=== PATIENT | female | born 1990 | race Caucasian/White ===

== ENCOUNTER 2020-03-28 04:15 | Inpatient (IN) | payer BC, SELFPAY ==
[2020-03-28] VITALS (129 sets, daily range): BP systolic 78–176; BP diastolic 40–97; PULSE 50–125; RESP 16–18; TEMP 35.7–37; O2SAT 85–99; BMI 34.7
[2020-03-28 04:12] LABS: ROM Internal Control Test YES-OK TO RESULT pt. (Internal QC)
[2020-03-28 04:13] LABS: ROM Patient Test POSITIVE (Negative)
[2020-03-28 04:16] LABS: Bedside Glucose 125 mg/dL (70-110)
[2020-03-28] MEDS: Lactated Ringers 1,000 ML 50 ML IV (05:00)
[2020-03-28] MEDS: Labetalol 100 MG Tablet PO (05:12)
[2020-03-28 05:19] LABS: Absolute Lymphocyte Count 2.95 X10^3/uL (0.83-4.51); Absolute Neutrophil Count 6.7 X10^3/uL (2.0-7.7); Basophil# 0.04 X10^3/uL; Basophil% 0.4 % (0-1); Eosinophil# 0.16 X10^3/uL; Eosinophils% 1.5 % (0-5); Hematocrit 41.2 % (37-47); Hemoglobin 13.2 g/dL (12.0-15.0); Lymphocyte # 2.95 X10^3/ul (4.0); Lymphocyte % 26.9 % (19-41); Mean Corpuscular Hgb 27.2 pg (27.0-32.0); Mean Corpuscular Volume 84.8 fL (81-99); Monocyte# 1.06 X10^3/uL; Monocyte% 9.7 % (0-10); NRBC Flagged by Analyzer 0 % (0-5); Neutrophil # 6.71 X10^3/uL (2.7-7.7); Platelet Count 419 K/mm3 (150-450); RBC Distribution Width CV 13.3 % (11.6-14.6); RBC Distribution Width SD 41.1 fl (35.1-43.9); Red Blood Count 4.86 M/mm3 (4.2-5.4)
[2020-03-28 05:27] LABS: Prothrombin Time (Protime)PT. 12.3 SECONDS (11.7-14.9)
[2020-03-28] MEDS: miSOPROStol 25 MCG TABLET VAGINAL (05:33)
[2020-03-28 05:51] LABS: Bedside Glucose 72 mg/dL (70-110)
[2020-03-28 05:57] LABS: AST(SGOT) 13 U/L (15-37); Alanine Aminotransfer ALT/SGPT 13 U/L (13-56); Creatinine, Serum 0.72 mg/dL (0.55-1.02); EST Glomerular Filtration Rate 101 mL/min (>60); Est Glom Filt Rate - Afr Amer 122 mL/min (>60); Estimated Creatinine Clearance 89.54 ml/min; Uric Acid 6.6 mg/dL (2.6-6.0)
[2020-03-28] MEDS: 0.9% Saline Lock 10 ML Syringe IV (06:47)
[2020-03-28 06:51] LABS: Bedside Glucose 88 mg/dL (70-110)
[2020-03-28 07:15] LABS: Group B Strep DNA By PCR Negative (Negative); Internal Control PASS; Probe Check PASS; Specimen Processing Control PASS
[2020-03-28] MEDS: hydrALAZINE 20 MG/ML Vial 10 MG IV (08:30)
[2020-03-28] MEDS: hydrALAZINE 10 MG Tablet 20 MG PO ×3 (09:27→21:49)
[2020-03-28] MEDS: miSOPROStol 50 MCG TABLET VAGINAL (09:50)
[2020-03-28] MEDS: Acetaminophen 500 MG Tablet 1000 MG PO ×2 (10:25→17:00)
[2020-03-28] MEDS: Magnesium Sulfate 4gm/100mL 4 GM/100 ML IV.SOLN. IV (10:39)
[2020-03-28 10:40] LABS: Bedside Glucose 76 mg/dL (70-110)
[2020-03-28] MEDS: Magnesium Sulfate 20 GM/500 ML BAG IV ×2 (11:07→21:00)
[2020-03-28 14:50] LABS: Bedside Glucose 95 mg/dL (70-110)
[2020-03-28] MEDS: Ondansetron 4 MG/2 ML Vial IV ×2 (15:24→22:48)
--- NOTE | 2020-03-28 16:41 | PCM.HP.OB ---
History Date of Admission: 03/28/20 Final MAHAMED: 04/25/20 Gestational age: 36 Weeks and 0 Days History of this : This is a 30 year-old, @ 36 weeks presents w/ c/o of spont. rupture of membranes. Good Fm. No VB/LOF. Mild HATCH upon admission has waxed and waned since admission. Now she has severe frontal HATCH. Denies visual changes or epigastric pain. complicated to date by gestational diabetes, maternal obesity w/ BMI of 34. Allergies cefaclor [From [facility]] Allergy (Verified 03/28/20 03:51) Hives Home Medications: Home Medications Claritin 1 tab PO DAILY 03/28/20 Omeprazole 40 mg PO DAILY 03/28/20 Vit No.130/Iron/Folic [ Tablet] 1 tab PO DAILY 03/28/20 Smoking Status: Never smoker Alcohol: None Number of Fetus(es): 1 NST - FHR Rate Baby A Baseline: normal Variability:: Moderate Accelerations:: 15 x 15 Decelerations:: None NST Reactive:: Yes FHR Category:: Category I Uterine Activity:: irritability History Past Pregnancies: Past Pregnancies Delivery Date Name GA/ Weeks Outcome Route Wt Infant Sex Labor Length Anesthesia Delivery Location Provider FOB Expected Infant Delivery Method: Spontaneous Vaginal Review of Systems Constitutional: Denies: Chills, Fever Eyes: Denies: Blurred vision Cardiovascular: Denies: Chest Pain Respiratory: Denies: Cough Gastrointestinal: Denies: Diarrhea Skin: Denies: Rash Neurological: Denies: Blurred vision, Double vision Hematologic/ Lymphatic: Denies: Anemia Physical Exam Vitals: Vital Signs Temp Pulse Resp BP Pulse Ox 98.0 F 97 16 141/85 H 98 03/28/20 14:52 03/28/20 16:25 03/28/20 13:19 03/28/20 15:56 03/28/20 16:25 General: Alert, Cooperative, No apparent distress Cardiovascular: Regular rate Lungs: Normal air movement Abdomen: Soft, Non Tender, Non-Distended Extremities:: Normal pulses, Deep tendon reflexes - 2+ Neurological: Cranial nerves II-XII grossly intact. Negative for: Clonus BASKET PERSON: Normal external genitalia Estimated gestational size: Appropriate for gestational size Presentation: Cephalic Cervix Dilation (cm): 2 Station: -2 Effacement (%): 70 Assessment/Plan This is a 30 year-old, 1 para 0 at 36 weeks gestation with premature rupture membranes, diet-controlled gestational diabetes, and preeclampsia with severe features. Induction of labor with Pitocin after Cytotec and Hurt ripening. Have epidural as desires. Magnesium prophylaxis started. Group B strep is negative. Continue to monitor closely. Patient is started on oral hypertensive medication as well. Blood sugars have been well controlled. 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 Procedure note: Hurt placed over stylette in usual sterile fashion and inflated to 30 cc. Placement over internal cervical loss confirmed. Patient tolerated the procedure well. Procedure Criteria COVID Risk Discussion: non-elective, essential procedure
[2020-03-28] MEDS: 0.9% Normal Saline Single 100 ML IV.SOLN. IY (17:00)
[2020-03-28] MEDS: proMETHazine 25 MG/ML Syringe 12.5 MG IV (17:17)
[2020-03-28] MEDS: Oxytocin 30 units/NS 500 ml 30 UNITS/500 ML IV.SOLN IV (18:54)
[2020-03-28 19:11] LABS: Bedside Glucose 94 mg/dL (70-110)
[2020-03-28] MEDS: Lactated Ringers 500 ML 999 ML IV ×2 (20:05→22:43)
[2020-03-28] MEDS: fentaNYL-bupivacaine (epidural) 100 ML BAG EPIDURAL (21:17)
--- NOTE | 2020-03-28 21:52 | NURSING ---
unable to enter assessment for 2026 on the Magnesium flow sheet due to bag change @ 2100 during epidural placement. BP 139/74, pulse 85, respirations 18, pulse ox 97; Intake PO 100 ml, 0 ml for output.
[2020-03-28 23:45] LABS: Bedside Glucose 118 mg/dL (70-110)
[2020-03-29] VITALS (70 sets, daily range): BP systolic 103–146; BP diastolic 51–88; PULSE 84–108; RESP 16–18; TEMP 35.7–37.2; O2SAT 93–99
[2020-03-29] MEDS: fentaNYL-bupivacaine (epidural) 100 ML BAG EPIDURAL (01:44)
[2020-03-29] MEDS: 0.9% Saline Lock 10 ML Syringe IV (02:41)
[2020-03-29] MEDS: Ondansetron 4 MG/2 ML Vial IV (02:41)
[2020-03-29] MEDS: Oxytocin 30 units/NS 500 ml 30 UNITS/500 ML IV.SOLN 334 UNITS IV (03:20)
--- NOTE | 2020-03-29 03:20 | PLAC_PTH ---
PATIENT: LEONARD RUBI LOC: [facility] U#:[id number] AGE/SX: 30/F ROOM: WP015 RE03/28/[address]: Dr. Sydnee Pedroza MD : 1990 BED: 1 DIS: 03/31/2020 SPEC #: [id number] RECD: 03/29/20 08:47 STATUS: LEIA REQ #: [id number] ANJANA: 03/29/20 03:[address]: Sydnee Pedroza DEPT: SURGICAL PATHOLOGY RECD BY: Jose Maurer ENTERED: 03/30/20 08:22 SP TYPE: PLACENTA OTHR DR: Dr. Buddy Rubio MD Tissues: Placenta, NOS Procedures: Surgery Specimen Level V HEADER OPERATION: Vaginal delivery PRE-OP DIAGNOSIS: PPROM TISSUE SUBMITTED: Placenta MICROSCOPIC DIAGNOSIS Placenta: Placental disc - third trimester placenta (413 gm). - Focal area of infarction and adjacent intervillous and perivillous fibrin deposition (1.2 cm in greatest dimension). - Focal increased intervillous and perivillous fibrin deposition and chronic villitis of unknown etiology. Submembranous hematoma (10 cm in greatest dimension). Membranes - focal mild acute chorioamnionitis. Umbilical cord - three blood vessels and no pathologic diagnosis. SJ:julian 04/01/20 MICROSCOPIC DESCRIPTION Slides are reviewed. GROSS DESCRIPTION SPECIMEN: PLACENTA / CLINICAL INFORMATION: A. Weight: 2.229 kg B. Gestational Age: 36 weeks C. Sex: Female PLACENTAL WEIGHT (POST FIXATION): 413 gm PLACENTAL DIMENSIONS: 18 x 15 x 3 cm PLACENTAL SHAPE: Usual ovoid PLACENTAL WEIGHT FOR GESTATIONAL AGE: Within 10-99th percentile MEMBRANES - Present A. Insertion: Marginal B. Site of rupture from edge: At edge of placental disc C. Color of membrane: Kebede-fernando D. Abnormalities: Submembranous hematoma measuring 10 x 7 x 2 cm UMBILICAL CORD - Present A. Color: Kebede-fernando B. Insertion: Near central insertion and received in two fragments C. Length: 30 cm D. Diameter: 1 cm E. Number of vessels: Three F. Abnormalities: None PLACENTAL DISC - Present A. Color of surface: Kebede-fernando B. surface abnormalities: None C. Maternal cotyledons: Intact with minimal tears D. Attached retro placental clot: No clot E. Cut surface: Dark red and spongy F. Lesions: Kebede-white lesion measuring 1.2 cm G. Separate clot: Absent SECTIONS SUBMITTED: 1. Umbilical cord ( end notched) 2. Umbilical cord, placental end 3. Membrane roll 4. Placental disc, and maternal surfaces, lesion 5. Placental disc, and maternal surfaces 6. Placental disc, and maternal surfaces AM:julian 03/31/20 TC:2 CPT: 48344
--- NOTE | 2020-03-29 03:40 | PCM.OPRPT ---
Vaginal Delivery Maternal Presentation: Medically Indicated Induction Method of Induction: Pitocin, Hurt Bulb, Cytotec Medical Reason for Induction: Premature Rupture of Membranes, Preeclampsia, eclampsia Amniotic Membrane Rupture Type: Spontaneous at home Amniotic Fluid Description: Clear Final MAHAMED: 04/25/20 Final MAHAMED Source: US <20 weeks Gestational age: 36 Weeks and 1 Days Date of Procedure: 03/29/20 Pre-Operative Diagnosis: labor Post-Operative Diagnosis: same Surgery/ Procedure Performed: Spontaneous Vaginal Delivery Type of Anesthesia: Epidural Description of Procedure: A vigorous female infant was delivered KATYA over a second-degree perineal laceration. The remainder the was delivered with maternal pushing and gentle traction only in less than 15 seconds. The Pitocin infusion was initiated for active management of the third stage. The cord was clamped and cut after 1 minute. The was attended to by the waiting nursing staff. The placenta was delivered spontaneously and intact. The cervix and vagina were intact. The second-degree perineal laceration was repaired with 3-0 Vicryl suture in a running standard fashion. Sponge and needle counts were correct. A vaginal sweep was completed by me. Presentation: KATYA Placental Delivery Description: Spontaneous Placenta Disposition: Sent to Pathology Cord Vessel Description: 3 Vessels Cord Gases drawn per routine: ABG, VBG Cord Entanglement: None Drain: Hurt to straight drain Estimated Blood Loss: 300 A gender: Female - Cristal (1 minute): 8 (5 minute): 9 Episiotomy Description: None Laceration: 2nd degree Medications given after delivery: IV Pitocin Complications: None
[2020-03-29 03:55] LABS: Bedside Glucose 113 mg/dL (70-110)
[2020-03-29 06:06] LABS: Bedside Glucose 128 mg/dL (70-110)
[2020-03-29] MEDS: Magnesium Sulfate 20 GM/500 ML BAG IV ×2 (06:51→15:31)
[2020-03-29] MEDS: Naproxen 250 MG Tablet 500 MG PO ×2 (10:00→17:24)
[2020-03-29] MEDS: Acetaminophen 500 MG Tablet 1000 MG PO (13:28)
[2020-03-29] MEDS: Lactated Ringers 500 ML 15 ML IV (14:15)
[2020-03-29 14:20] LABS: Pathology Specimen OB SEE PATHOLOGY REPORT
[2020-03-29] MEDS: Senna/Docusate Sodium 1 Tablet PO (21:34)
[2020-03-30] VITALS (18 sets, daily range): BP systolic 118–153; BP diastolic 64–95; PULSE 53–93; RESP 16–18; TEMP 36.4–36.8; O2SAT 93–97
[2020-03-30] MEDS: Magnesium Sulfate 20 GM/500 ML BAG IV (01:27)
[2020-03-30] MEDS: Naproxen 250 MG Tablet 500 MG PO ×3 (02:48→19:03)
[2020-03-30 06:46] LABS: Bedside Glucose 82 mg/dL (70-110)
[2020-03-30] MEDS: Dibucaine 30 GM Tube 1 APPLIC TOPICAL (08:19)
[2020-03-30] MEDS: Senna/Docusate Sodium 1 Tablet PO (08:19)
--- NOTE | 2020-03-30 08:39 | PN.OBGYN_ITS ---
Subjective: Doing well per patient and nursing staff. Ambulating and taking PO without difficulty. Voiding and passing flatus. Denies any headaches, visual changes, chest pain, shortness of breath, leg pain or increased vaginal bleeding. . - Physical Exam Vitals/I&O's: Vital Signs Temp Pulse Resp BP Pulse Ox 98.2 F 81 18 125/67 H 96 03/30/20 08:09 03/30/20 08:11 03/30/20 03:33 03/30/20 08:11 03/30/20 03:33 Oxygen Delivery Method Room Air Weight: 190 lb Body Mass Index (BMI) 34.7 Intake and Output for Last 24 Hours 03/28/20 03/29/20 03/30/20 23:59 23:59 23:59 Intake Total 2330.34 / 2330.34 3391.99 / 3391.99 619.39 / 619.39 Output Total 1290 / 1290 2690 / 2690 500 / 500 Balance 1040.34 / 1040.34 701.99 / 701.99 119.39 / 119.39 General: Alert, Oriented x3, Cooperative HEENT: Atraumatic, Normocephalic Neck: Trachea Midline Lungs: Clear to auscultation, Normal air movement, No rhonchi, No wheeze Cardiovascular: Regular rate, Regular Rhythm, No murmurs Abdomen: Bowel Sounds Present - Fundus firm 2 below U Extremities: Edema - +1 BLE, pitting Neurological: Deep Tendon Reflexes 2+/4 and Symmetrical Psych/Mental Status: Normal Affect, Appropriate Laboratory Results 03/30/20 06:32: POC Glucose 82 Current Medications Acetaminophen (Tylenol) 1,000 mg PO Q8H PRN PRN PRN Reason: Pain Score 1-3/10 Last Admin: 03/29/20 13:28 Dose: 1,000 mg Documented by: Bisacodyl (Dulcolax) 10 mg RECTAL UD PRN PRN Reason: If no BM Dibucaine (Dibucaine) 1 applic TOPICAL TID PRN PRN; Protocol PRN Reason: Discomfort Last Admin: 03/30/20 08:19 Dose: 1 oint Documented by: Hydrocortisone (Hytone) 1 applic TOPICAL TID PRN PRN; Protocol PRN Reason: Discomfort Loratadine (Claritin) 10 mg PO DAILY [facility] Last Admin: 03/29/20 13:24 Dose: Not Given Documented by: Methylergonovine Maleate (Methergine) 0.2 mg IM X1 PRN PRN Reason: Excess bleeding/uterine atony Naproxen (Naprosyn) 500 mg PO Q8H PRN PRN PRN Reason: Pain Score 1-3/10 Last Admin: 03/30/20 02:48 Dose: 500 mg Documented by: Omeprazole (Omeprazole) 40 mg PO DAILY [facility] Last Admin: 03/29/20 10:20 Dose: Not Given Documented by: Ondansetron HCl (Zofran) 4 mg IV Q4H PRN PRN PRN Reason: Nausea Oxycodone HCl (Oxyir) 5 - 10 mg PO Q4H PRN PRN PRN Reason: Pain Score 4-10/10 Prochlorperazine Edisylate (Compazine Iv) 10 mg IV Q6H PRN PRN PRN Reason: NAUSEA/VOMITING Senna/Docusate Sodium (Senokot-S, Concepción-Colace) 1 - 2 tablet PO DAILY PRN PRN PRN Reason: Constipation Last Admin: 03/30/20 08:19 Dose: 2 tablet Documented by: Simethicone (Mylicon) 80 mg PO PCHS PRN PRN Reason: Indigestion/Stomach pain Sodium Chloride () 5 - 15 ml IV UD PRN PRN Reason: SALINE FLUSH Medical Necessity - Tobacco Use Smoking Status: Never smoker Assessment/Plan A:PPD #1 Preeclampsia with Severe features P: 1) Doing well per nursing staff. 2) instructions with support. 3) Magnesium stopped at 0300, asymptomatic 4) No PO antihypertensives at this time, BP stable. 5) Planning D/C home tomorrow
--- NOTE | 2020-03-30 09:43 | NURSING ---
this AM BP taken and 144/74 obtained; pt requested retake because she said she didn't know BP cuff was pumping up and she was distractedly moving her arm around. Retake was 125/67
[2020-03-30] MEDS: Labetalol 100 MG Tablet PO (17:20)
[2020-03-31] VITALS (8 sets, daily range): BP systolic 139–155; BP diastolic 72–99; PULSE 72–81; RESP 16; TEMP 36.4–36.9
[2020-03-31] MEDS: Naproxen 250 MG Tablet 500 MG PO (03:26)
[2020-03-31] MEDS: 0.9% Saline Lock 10 ML Syringe IV (03:26)
[2020-03-31] MEDS: Labetalol 100 MG Tablet PO (05:29)
--- NOTE | 2020-03-31 08:16 | PCM.PN.OB ---
Subjective: Seen at bedside, doing well. Patient reports good pain control. Mild lochia. Voiding without difficulty. She denies any headaches or visual changes. Swelling is decreasing per patient. Breast-feeding going well. - Physical Exam Vitals/I&O's: Vital Signs Temp Pulse Resp BP Pulse Ox 98.4 F 81 16 145/72 H 96 03/31/20 07:54 03/31/20 07:53 03/31/20 01:12 03/31/20 07:53 03/30/20 03:33 Oxygen Delivery Method Room Air Weight: 86.183 kg Body Mass Index (BMI) 34.7 Intake and Output for Last 24 Hours 03/29/20 03/30/20 03/31/20 23:59 23:59 23:59 Intake Total 3391.99 / 3391.99 619.39 / 619.39 Output Total 2690 / 2690 500 / 500 Balance 701.99 / 701.99 119.39 / 119.39 General: Alert, Oriented x3 Abdomen: Soft, Non Tender, Non-Distended, - - fundus firm Extremities: No Calf Tenderness Microbiology Past 72 Hours 03/28/20 Unknown Genital vaginal Group B Streptococcus Culture - Final Group B Beta Streptococcus is not isolated. Current Medications Acetaminophen (Tylenol) 1,000 mg PO Q8H PRN PRN PRN Reason: Pain Score 1-3/10 Last Admin: 03/29/20 13:28 Dose: 1,000 mg Documented by: Bisacodyl (Dulcolax) 10 mg RECTAL UD PRN PRN Reason: If no BM Dibucaine (Dibucaine) 1 applic TOPICAL TID PRN PRN; Protocol PRN Reason: Discomfort Last Admin: 03/30/20 08:19 Dose: 1 oint Documented by: Hydrocortisone (Hytone) 1 applic TOPICAL TID PRN PRN; Protocol PRN Reason: Discomfort Labetalol HCl (Trandate) 100 mg PO BID@0530,1730 [facility] Last Admin: 03/31/20 05:29 Dose: 100 mg Documented by: Loratadine (Claritin) 10 mg PO DAILY [facility] Last Admin: 03/30/20 10:34 Dose: Not Given Documented by: Methylergonovine Maleate (Methergine) 0.2 mg IM X1 PRN PRN Reason: Excess bleeding/uterine atony Naproxen (Naprosyn) 500 mg PO Q8H PRN PRN PRN Reason: Pain Score 1-3/10 Last Admin: 03/31/20 03:26 Dose: 500 mg Documented by: Omeprazole (Omeprazole) 40 mg PO DAILY [facility] Last Admin: 03/30/20 10:34 Dose: Not Given Documented by: Ondansetron HCl (Zofran) 4 mg IV Q4H PRN PRN PRN Reason: Nausea Oxycodone HCl (Oxyir) 5 - 10 mg PO Q4H PRN PRN PRN Reason: Pain Score 4-10/10 Prochlorperazine Edisylate (Compazine Iv) 10 mg IV Q6H PRN PRN PRN Reason: NAUSEA/VOMITING Senna/Docusate Sodium (Senokot-S, Concepción-Colace) 1 - 2 tablet PO DAILY PRN PRN PRN Reason: Constipation Last Admin: 03/30/20 08:19 Dose: 2 tablet Documented by: Simethicone (Mylicon) 80 mg PO PCHS PRN PRN Reason: Indigestion/Stomach pain Sodium Chloride () 5 - 15 ml IV UD PRN PRN Reason: SALINE FLUSH Last Admin: 03/31/20 03:26 Dose: 5 ml Documented by: Medical Necessity - Tobacco Use Smoking Status: Never smoker Assessment/Plan PPD#2- severe pre E 1) labetalol 100 BID 2) f/u in office 04/02 9am for BP check 3) Dc Home today- instructions reviewed
--- NOTE | 2020-03-31 08:26 | DCINST_ITS ---
Discharge Diet: No Restrictions Discharge Activity: Return to Normal Activity, May not drive while taking narcotic pain medications., May Shower May resume sexual activity in: 4-6 weeks Additional Activity Instructions:: Nothing in the vagina for 4-6 weeks. You may return to work/school in 6 weeks. Call your doctor if your incision/area has: Continuous Slow Oozing, Sudden Increased Bleeding, Increased Pain/ Swelling, Increased Redness, Foul Smelling Discharge Additional Instructions: If you experience any of the following, contact your healthcare provider. * Bleeding that soaks a pad every hour for 2 hours * Fever 100.4 or higher * Unrelieved incision or abdominal pain * Swelling, redness, discharge or bleeding from your incision or episiotomy site * Your incision begins to separate * Problems urinating (including inability to urinate or burning while urinating). * Visual changes * Severe headache * Flu-like symptoms * Pain or redness in one of both of your breasts * Pain, warmth, tenderness or swelling in your legs, especially the calf area * Frequent nausea and vomiting * Symptoms of depression or anxiety If you experience any of the following, call 911 or go to the nearest Emergency Room. * Chest pain * Problems breathing * Seizure activity * Partial or complete paralysis of a body part, slurred speech, weakness or drooping of the face, or a sudden inability to walk or hold your balance Allergies/Adverse Reactions: Allergies cefaclor [From Ceclor] Allergy (Verified 03/28/20 03:51) Hives Medications to take at Discharge Claritin 1 tab PO DAILY 03/28/20 Omeprazole 40 mg PO DAILY 03/28/20 Vit No.130/Iron/Folic [ Tablet] 1 tab PO DAILY 03/28/20 Acetaminophen [Tylenol] 1,000 mg PO Q8H PRN PRN #60 tab 03/31/20 Labetalol [Trandate (Beta Mindi)] 100 mg PO BID@0530,1730 #60 tab 03/31/20 Loratadine [Claritin] 10 mg PO DAILY tab 03/31/20 Naproxen [Naprosyn] 500 mg PO Q8H PRN PRN #60 tab 03/31/20 Senna/Docusate Sodium [Senokot-S] 1 - 2 tab PO DAILY PRN PRN #20 tab 03/31/20 The following prescriptions were given: Naproxen [Naprosyn] 500 mg PO Q8H PRN PRN #60 tab PRN Reason: Pain Score 1-310 Transmission Status: Pending to [id number] Senna/Docusate Sodium [Senokot-S] 1 - 2 tab PO DAILY PRN PRN #20 tab PRN Reason: Constipation Transmission Status: Pending to [id number] Labetalol [Trandate (Beta Mindi)] 100 mg PO BID@0530,2270 #60 tab Transmission Status: Pending to [id number] Acetaminophen [Tylenol] 1,000 mg PO Q8H PRN PRN #60 tab PRN Reason: Pain Score 1-10 Transmission Status: Pending to [id number] When: 04/02/20 at 9am [facility] for BP check. You will then need an appointment at 2 weeks and 6 weeks Post Please Follow Up With: Sydnee Pedroza MD Primary Care Physician: Buddy Rubio MD [Primary Care Provider] - Test Results: Test results from this visit will be discussed in further detail at your follow- up appointment, if applicable.
== END 2020-03-31 11:00 | disposition home or self-care (01) | DRG 807 ==
LOC: WPOUT 04:15 → WP 04:15
PROVIDERS: Admitting Provider Obstetrics & Gynecology; PCP Family Medicine; Visit Provider Obstetrics & Gynecology
DX: O60.14X0 Preterm labor third trimester with preterm delivery third trimester, not applicable or unspecified (principal); O42.913 Preterm premature rupture of membranes, unspecified as to length of time between rupture and onset of labor, third trimester; O14.14 Severe pre-eclampsia complicating childbirth; O24.420 Gestational diabetes mellitus in childbirth, diet controlled; O70.1 Second degree perineal laceration during delivery; O99.214 Obesity complicating childbirth; E66.9 Obesity, unspecified; Z3A.36 36 weeks gestation of pregnancy; Z37.0 Single live birth
CPT/HCPCS: 59025; 59050; 82565; 82962; 84112; 84450; 84460; 84550; 85025; 85610; 85730; 86850; 86900; 86901; 87081; 87653; 88307; 99218; J7120; A4216; G0378; J2405

== ENCOUNTER → 2021-03-18 | Outpatient (CLI) | payer BC, SELFPAY ==
[2021-03-18 10:29] VITALS: BMI 34.7
[2021-03-23 11:57] LABS: HPV Reflexed? NOT INDICATED
== END | disposition home or self-care (01) ==
PROVIDERS: PCP Family Medicine; Referring Provider Obstetrics & Gynecology; Visit Provider Obstetrics & Gynecology
DX: Z12.4 Encounter for screening for malignant neoplasm of cervix (principal)
CPT/HCPCS: 88175; G0145

== ENCOUNTER → 2021-08-09 | Outpatient (CLI) | payer BC, SELFPAY | END | disposition home or self-care (01) | LOC: LABSPEC 08-12 08:35 | PROVIDERS: PCP Family Medicine; Visit Provider Family Medicine | DX: Z20.822 Contact with and (suspected) exposure to COVID-19 (principal) | CPT/HCPCS: 87635; U0005; U0003 ==

== ENCOUNTER → 2021-09-06 | Outpatient (CLI) | payer BC, SELFPAY | END | disposition home or self-care (01) | LOC: LABSPEC 13:56 | PROVIDERS: PCP Family Medicine; Referring Provider Family Medicine; Visit Provider Family Medicine | DX: Z20.822 Contact with and (suspected) exposure to COVID-19 (principal) | CPT/HCPCS: 87633; 87635; U0005; U0003 ==

== ENCOUNTER → 2021-09-21 | Outpatient (CLI) | payer BC, SELFPAY | END | disposition home or self-care (01) | LOC: LABSPEC 15:18 | PROVIDERS: PCP Family Medicine; Referring Provider Family Medicine; Visit Provider Family Medicine | DX: U07.1 COVID-19 (principal) | CPT/HCPCS: 87635; U0005; U0003 ==

== ENCOUNTER 2021-09-24 09:05 | Outpatient (CLI) | payer BC, SELFPAY ==
[2021-09-24 09:08] VITALS: BP 153/85; PULSE 102; RESP 16; TEMP 36.8; O2SAT 98; BMI 35.1
[2021-09-24] MEDS: 0.9% Saline Lock 10 ML Syringe IV (09:09)
[2021-09-24 09:47] VITALS: BP 123/85; PULSE 84; RESP 16; TEMP 37.1; O2SAT 97
[2021-09-24 10:42] VITALS: BP 137/77; PULSE 83; RESP 16; TEMP 36.6; O2SAT 99
== END 2021-09-24 10:52 | disposition home or self-care (01) ==
LOC: MS3OUT 09:05 → MS3 09:07
PROVIDERS: PCP Family Medicine; Referring Provider Nurse Practitioner Acute Care; Visit Provider Nurse Practitioner Acute Care
DX: Z23 Encounter for immunization (principal); U07.1 COVID-19
CPT/HCPCS: J7050; M0245; Q0245; A4216

== ENCOUNTER 2021-10-18 12:03 | Outpatient (CLI) | payer BC, SELFPAY ==
[2021-10-18 15:18] LABS: Absolute Lymphocyte Count 2.96 X10^3/uL (0.83-4.51); Absolute Neutrophil Count 11.3 X10^3/uL (2.0-7.7); Basophil# 0.05 X10^3/uL; Basophil% 0.3 % (0-1); Eosinophil# 0.51 X10^3/uL; Eosinophils% 3.2 % (0-5); Hematocrit 42.3 % (37-47); Hemoglobin 13.5 g/dL (12.0-15.0); Lymphocyte # 2.96 X10^3/ul (0.83-4.51); Lymphocyte % 18.8 % (19-41); Mean Corp Hgb Conc 31.9 g/dL (32-36); Mean Corpuscular Hgb 27.2 pg (27.0-32.0); Mean Corpuscular Volume 85.1 fL (81-99); Mean Platelet Vol. 8.7 fl (6.2-12.0); Monocyte# 0.82 X10^3/uL; Monocyte% 5.2 % (0-10); NRBC Flagged by Analyzer 0 % (0-5); Platelet Count 496 K/mm3 (150-450); RBC Distribution Width CV 13.9 % (11.6-14.6); RBC Distribution Width SD 42.5 fl (35.1-43.9); Red Blood Count 4.97 M/mm3 (4.2-5.4); White Blood Count 15.7 K/mm3 (4.4-11.0)
[2021-10-18 15:27] LABS: Anion Gap 8 (5-15); BUN 9 mg/dL (7-18); BUN/Creat Ratio 14.3 RATIO (10-20); Calcium,Total 9.5 mg/dL (8.5-10.1); Chloride 102 mmol/L (98-107); Creatinine, Serum 0.63 mg/dL (0.55-1.02); EST Glomerular Filtration Rate 116 mL/min (>60); Est Glom Filt Rate - Afr Amer 141 mL/min (>60); Glucose 88 mg/dL (74-106); Potassium 3.4 mmol/L (3.5-5.1); Sodium Level 138 mmol/L (136-145)
[2021-10-18 15:47] LABS: D-Dimer Quantitative (DVT/PE) <= 0.27 FEU/ug/m (0.27-0.49)
== END 2021-10-18 23:59 | disposition short-term general hospital (02) ==
LOC: MTLAB 12:05
PROVIDERS: PCP Family Medicine; Referring Provider Family Medicine; Visit Provider Family Medicine
DX: R07.89 Other chest pain (principal)
CPT/HCPCS: 36415; 80048; 85025; 85379

== ENCOUNTER 2021-11-25 08:19 | Outpatient (CLI) | payer BC, SELFPAY ==
--- NOTE | 2021-11-25 09:05 | RAD_ITS ---
EXAM: XR Chest, 2 Views CLINICAL INDICATION: 31 years old, Female; COUGH TECHNIQUE: Frontal and lateral views of the chest. This report was created using [employer] report generation technology. COMPARISON: XR Chest dated 01/16/2017 FINDINGS: Lungs and pleural spaces: Atelectasis in the lung bases. No pneumothorax. No effusion. Heart: Unremarkable. Cardiac silhouette not enlarged. Mediastinum: Central airways and mediastinal contour are unremarkable. Bones/joints: Unremarkable. Soft tissues: Unremarkable. RAD/Chest PA and Lateral IMPRESSION: No acute findings in the chest. Electronically Signed: Tim Cao MD at 7:45 EST ,
[2021-11-25 10:20] LABS: Absolute Lymphocyte Count 2.84 X10^3/uL (0.83-4.51); Basophil# 0.04 X10^3/uL; Basophil% 0.4 % (0-1); Eosinophil# 0.37 X10^3/uL; Eosinophils% 3.7 % (0-5); Hematocrit 43.9 % (37-47); Hemoglobin 14.6 g/dL (12.0-15.0); Lymphocyte # 2.84 X10^3/ul (0.83-4.51); Lymphocyte % 28.5 % (19-41); Mean Corp Hgb Conc 33.3 g/dL (32-36); Mean Corpuscular Hgb 28.4 pg (27.0-32.0); Mean Corpuscular Volume 85.4 fL (81-99); Monocyte# 0.71 X10^3/uL; Monocyte% 7.1 % (0-10); NRBC Flagged by Analyzer 0 % (0-5); Neutrophil # 5.97 X10^3/uL (2.7-7.7); Neutrophil % 59.8 % (47-70); Platelet Count 459 K/mm3 (150-450); RBC Distribution Width CV 13.4 % (11.6-14.6); RBC Distribution Width SD 42.1 fl (35.1-43.9); Red Blood Count 5.14 M/mm3 (4.2-5.4)
== END 2021-11-25 23:59 | disposition home or self-care (01) ==
LOC: MTLAB 08:21
PROVIDERS: PCP Family Medicine; Referring Provider Family Medicine; Visit Provider Family Medicine
DX: R05.9 Cough, unspecified (principal)
CPT/HCPCS: 36415; 71046; 85025

== ENCOUNTER → 2023-02-16 | Outpatient (CLI) | payer OTHER, SELFPAY ==
[2023-02-16 09:42] LABS: Absolute Lymphocyte Count 3.94 X10^3/uL (0.83-4.51); Absolute Neutrophil Count 5.4 X10^3/uL (2.0-7.7); Basophil# 0.05 X10^3/uL; Basophil% 0.5 % (0-1); Eosinophil# 0.39 X10^3/uL; Eosinophils% 3.7 % (0-5); Hematocrit 44.7 % (37-47); Hemoglobin 14.6 g/dL (12.0-15.0); Lymphocyte # 3.94 X10^3/ul (0.83-4.51); Lymphocyte % 37.7 % (19-41); Mean Corp Hgb Conc 32.7 g/dL (32-36); Mean Corpuscular Hgb 27.7 pg (27.0-32.0); Mean Corpuscular Volume 84.8 fL (81-99); Mean Platelet Vol. 8.2 fl (6.2-12.0); Monocyte% 5.7 % (0-10); NRBC Flagged by Analyzer 0 % (0-5); Neutrophil # 5.44 X10^3/uL (2.7-7.7); Neutrophil % 52.1 % (47-70); Platelet Count 416 K/mm3 (150-450); RBC Distribution Width CV 13.1 % (11.6-14.6); RBC Distribution Width SD 40.5 fl (35.1-43.9); Red Blood Count 5.27 M/mm3 (4.2-5.4); White Blood Count 10.5 K/mm3 (4.4-11.0)
[2023-02-16 10:14] LABS: Thyroid Stim Hormone (TSH) 1.68 uIU/mL (0.358-3.74)
[2023-02-16 10:38] LABS: Hemoglobin A1c 5.5 % (3.8-5.6)
== END | disposition home or self-care (01) ==
LOC: PAVLAB 09:30
PROVIDERS: PCP Family Medicine; Referring Provider Obstetrics & Gynecology; Visit Provider Obstetrics & Gynecology
DX: N93.9 Abnormal uterine and vaginal bleeding, unspecified (principal)
CPT/HCPCS: 36415; 83036; 84443; 85025

== ENCOUNTER → 2023-02-22 | Outpatient (CLI) | payer OTHER, SELFPAY ==
--- NOTE | 2023-02-22 14:05 | US_ITS ---
INDICATION: AUB EXAMINATION: Ultrasound US Pelvis Non OB Complete With Transvaginal Imaging TECHNIQUE: Transabdominal and transvaginal pelvic ultrasound was performed. Grayscale, spectral waveform, and color flow Doppler evaluation of the adnexa. COMPARISON: None. LMP: 02/07/2023. FINDINGS: UTERUS: Retroflexed. The uterus measures 7.1 x 4.7 x 3.5 cm in diameter. The endometrial stripe measures 10 mm in thickness. Endometrium is heterogeneous with indistinctness of the endometrial-myometrial junction. The myometrium shows no discrete fibroids, but the myometrium is inhomogeneous with small areas of shadowing. Small benign nabothian cyst incidentally noted within the cervix. RIGHT OVARY: Right ovary measures 2.6 x 2.4 x 1.7 cm in diameter. Non-enlarged. Multiple small follicles noted within the right ovary. Doppler flow is documented within the right ovary. LEFT OVARY: Left ovary measures 2.8 x 2.7 x 2.4 cm in diameter.. Non-enlarged. Left ovary contains small follicles along with a 1.4 x 1.6 x 1.7 cm rounded cystic lesion which shows a lobulated margin and a hyperemic rim, consistent with an involuting follicle. Doppler flow documented within the left ovary. FREE FLUID: Minimal physiologic anechoic free fluid in the cul-de-sac. OTHER: No paraovarian mass. Urinary bladder is distended with a volume of 399 cc. Bladder wall is not thickened US/Pelvic (Non ) IMPRESSION: Normal thickness endometrium, but the endometrial-myometrial junction is indistinct, raising the possibility of adenomyosis. No discrete uterine fibroids. No endometrial polyp identified. 1.7 cm involuting/collapsing left ovarian follicle. Electronically Signed: John Murphy MD at 2:14 EDT ,
== END | disposition home or self-care (01) ==
LOC: US 14:04
PROVIDERS: PCP Family Medicine; Referring Provider Obstetrics & Gynecology; Visit Provider Obstetrics & Gynecology
DX: N93.9 Abnormal uterine and vaginal bleeding, unspecified (principal)
CPT/HCPCS: 76830; 76856

== ENCOUNTER → 2023-03-07 | Outpatient (CLI) | payer OTHER, SELFPAY ==
[2023-03-07 10:40] LABS: hCG Titer Quant., Serum 113 mIU/mL (1-3)
== END | disposition home or self-care (01) ==
LOC: PAVLAB 10:02
PROVIDERS: PCP Family Medicine; Referring Provider Nurse Practitioner Women's Health; Visit Provider Nurse Practitioner Women's Health
DX: N91.2 Amenorrhea, unspecified (principal)
CPT/HCPCS: 36415; 84702

== ENCOUNTER → 2023-03-22 | Outpatient (CLI) | payer OTHER, SELFPAY ==
--- NOTE | 2023-03-22 16:32 | US_ITS ---
STUDY: FIRST TRIMESTER OBSTETRICAL ULTRASOUND REASON FOR EXAM: Female, 33 years old. viability TECHNIQUE: Transvaginal US was obtained to better visualized the ovaries. TECHNICAL QUALITY: Adequate. PRIOR ULTRASOUND: 02.22.23. FINDINGS: There is visualization of a single gestational sac in a normal intrauterine position. The mean sac diameter (MSD) measures 15 mm, indicating an estimated gestational age (EGA) of 6 weeks, 2 days. The gestational sac shape is within normal limits. There is a visualized yolk sac. The yolk sac measures 3.2 mm. The placenta is non-visualized. Due to early gestation, the placenta is not seen. There is visualization of a live embryo. The crown-rump length (CRL) measures 3.9 mm, indicating an estimated gestational age (EGA) of 6 weeks, 2 days. There is demonstrated cardiac activity with a heart rate of 108 bpm. The estimated gestation age (EGA) by LMP is 6 weeks, 1 days. The estimated date of delivery (MAHAMED) by LMP is 2.13.24. The estimated gestation age (EGA) by US is 6 weeks, 2 days. The estimated date of delivery (MAHAMED) by US is 2.12.24. The uterus measures 8.6 cm. There is no demonstrated uterine fibroid. The cervix is closed. Small subchorionic hemorrhage. The right ovary measures 2.8 cm. There is no right ovarian cyst. There is no visualized right adnexal mass or complex lesion. The left ovary measures 3.6 cm. Left corpus luteum cyst measures 21 mm. There is no visualized left adnexal mass or complex lesion. There is no fluid in the cul de sac. US/Transvaginal w/Preg US IMPRESSION: There is a single live intrauterine with a heart rate of 108 bpm. Small subchorionic hemorrhage. Electronically Signed: Andrey eMng MD at 17:43 EDT ,
== END | disposition home or self-care (01) ==
LOC: US 16:31
PROVIDERS: PCP Family Medicine; Referring Provider Nurse Practitioner Women's Health; Visit Provider Nurse Practitioner Women's Health
DX: O26.851 Spotting complicating pregnancy, first trimester (principal); Z3A.01 Less than 8 weeks gestation of pregnancy
CPT/HCPCS: 76817

== ENCOUNTER → 2023-03-22 | Outpatient (CLI) | payer OTHER, SELFPAY ==
[2023-03-22 14:12] LABS: hCG Titer Quant., Serum 10683 mIU/mL (1-3)
== END | disposition home or self-care (01) ==
PROVIDERS: PCP Family Medicine; Referring Provider Nurse Practitioner Women's Health; Visit Provider Nurse Practitioner Women's Health
DX: N92.0 Excessive and frequent menstruation with regular cycle (principal)
CPT/HCPCS: 36415; 84702

== ENCOUNTER → 2023-04-06 | Outpatient (CLI) | payer OTHER, SELFPAY ==
--- NOTE | 2023-04-06 12:23 | US_ITS ---
STUDY: FIRST TRIMESTER OBSTETRICAL ULTRASOUND REASON FOR EXAM: Female, 33 years old dating LMP: February 07, 2023. TECHNIQUE: Transvaginal TECHNICAL QUALITY: Adequate. PRIOR ULTRASOUND: Comparison is made with prior study dated March 22, 2023. FINDINGS: There is visualization of a single gestational sac in a normal intrauterine position. The mean sac diameter (MSD) measures 3.4 cm, indicating an estimated gestational age (EGA) of 8 weeks, 4 days. The gestational sac shape is within normal limits. There is a visualized yolk sac. The yolk sac measures 4.6 mm. The placenta is non-visualized. There is visualization of a live embryo. The crown-rump length (CRL) measures 2.03 cm, indicating an estimated gestational age (EGA) of 8 weeks, 2 days. There is demonstrated cardiac activity with a heart rate of 171 bpm. The estimated gestation age (EGA) by LMP is 8 weeks, 2 days. The estimated date of delivery (MAHAMED) by LMP is November 14, 2023. The estimated gestation age (EGA) by US is 8 weeks, 2 days. The estimated date of delivery (MAHAMED) by US is November 14, 2023. The uterus measures 8.7 cm x 6.9 cm x 6.5 cm. Small subchorionic bleed measuring 2.1 cm x 0.6 cm x 1.2 cm There is no demonstrated uterine fibroid. The cervix is closed. The right ovary measures 2.5 cm x 2.6 x 1.9 cm. There is no right ovarian cyst. There is no visualized right adnexal mass or complex lesion. The left ovary measures 4 cm x 2.4 cm x 2.6 cm. There is no left ovarian cyst. There is no visualized left adnexal mass or complex lesion. There is no fluid in the cul de sac. US/Transvaginal w/Preg US IMPRESSION: Single live uterine gestation with a mean gestational age of 8 weeks and 2 days. Electronically Signed: Jeferson Freeman MD at 14:04 EDT ,
== END | disposition home or self-care (01) ==
LOC: US 12:22
PROVIDERS: PCP Family Medicine; Referring Provider Obstetrics & Gynecology; Visit Provider Obstetrics & Gynecology
DX: Z34.90 Encounter for supervision of normal pregnancy, unspecified, unspecified trimester (principal)
CPT/HCPCS: 76817; 87086

== ENCOUNTER → 2023-04-27 | Outpatient (CLI) | payer OTHER, SELFPAY ==
[2023-04-27 08:31] LABS: Absolute Lymphocyte Count 2.65 X10^3/uL (0.83-4.51); Absolute Neutrophil Count 7.8 X10^3/uL (2.0-7.7); Basophil# 0.04 X10^3/uL; Basophil% 0.4 % (0-1); Eosinophil# 0.42 X10^3/uL; Eosinophils% 3.7 % (0-5); Hematocrit 41.8 % (37-47); Hemoglobin 13.4 g/dL (12.0-15.0); Lymphocyte # 2.65 X10^3/ul (0.83-4.51); Lymphocyte % 23.2 % (19-41); Mean Corp Hgb Conc 32.1 g/dL (32-36); Mean Corpuscular Hgb 27.5 pg (27.0-32.0); Mean Corpuscular Volume 85.8 fL (81-99); Mean Platelet Vol. 8.2 fl (6.2-12.0); Monocyte# 0.49 X10^3/uL; Monocyte% 4.3 % (0-10); NRBC Flagged by Analyzer 0 % (0-5); Neutrophil # 7.77 X10^3/uL (2.7-7.7); Platelet Count 403 K/mm3 (150-450); RBC Distribution Width SD 40.2 fl (35.1-43.9); Red Blood Count 4.87 M/mm3 (4.2-5.4); White Blood Count 11.4 K/mm3 (4.4-11.0)
[2023-04-27 08:40] LABS: Glucose Challenge Gest 1H 50g 194 mg/dL (70-140)
[2023-04-27 09:20] LABS: NATERA MAILED SPECIMEN
[2023-04-27 09:58] LABS: HIV - WCH Non-Reactive (Nonreactive); Hepatitis B Surface Antigen Non-Reactive (Nonreactive); Hepatitis C Antibody Non-Reactive (Nonreactive); Rubella IgG Non-Reactive (Nonreactive); Syphilis Antibodies Equiv
== END | disposition home or self-care (01) ==
PROVIDERS: PCP Family Medicine; Referring Provider Obstetrics & Gynecology; Visit Provider Obstetrics & Gynecology
DX: Z34.81 Encounter for supervision of other normal pregnancy, first trimester (principal); Z3A.00 Weeks of gestation of pregnancy not specified
CPT/HCPCS: 36415; 82950; 85025; 86703; 86762; 86780; 86803; 86850; 86900; 86901; 87340

== ENCOUNTER → 2023-05-05 | Outpatient (CLI) | payer OTHER, SELFPAY | END | disposition home or self-care (01) | LOC: LABSPEC 16:19 | PROVIDERS: PCP Family Medicine; Referring Provider Obstetrics & Gynecology; Visit Provider Obstetrics & Gynecology | DX: O09.90 Supervision of high risk pregnancy, unspecified, unspecified trimester (principal); Z3A.00 Weeks of gestation of pregnancy not specified | CPT/HCPCS: 87491; 87591 ==

== ENCOUNTER 2023-05-22 13:30 | Outpatient (RCR) | payer OTHER, SELFPAY | END 2023-06-01 23:59 | LOC: NS 13:30 | PROVIDERS: PCP Family Medicine; Referring Provider Nurse Practitioner Women's Health; Visit Provider Nurse Practitioner Women's Health | DX: Z71.3 Dietary counseling and surveillance (principal); O24.319 Unspecified pre-existing diabetes mellitus in pregnancy, unspecified trimester; Z3A.00 Weeks of gestation of pregnancy not specified | CPT/HCPCS: 97802 ==

== ENCOUNTER → 2023-06-09 | Outpatient (CLI) | payer OTHER, SELFPAY ==
[2023-06-09 18:04] LABS: ALB/GLOB Ratio 0.7 RATIO (0.9-2.4); AST(SGOT) 8 U/L (15-37); Alanine Aminotransfer ALT/SGPT 16 U/L (13-56); Albumin, Serum 2.9 g/dL (3.2-5.0); Alkaline Phosphatase 76 U/L (45-117); Anion Gap 8 (5-15); BUN 8 mg/dL (7-18); BUN/Creat Ratio 14.8 RATIO (10-20); Chloride 107 mmol/L (98-107); Creatinine, Serum 0.54 mg/dL (0.55-1.02); EST Glomerular Filtration Rate 137 mL/min (>60); Est Glom Filt Rate - Afr Amer 166 mL/min (>60); Globulin 4.3 g/dL (2.2-4.2); Glucose 87 mg/dL (74-106); Potassium 3.7 mmol/L (3.5-5.1); Protein, Total 7.2 g/dL (6.4-8.2); Sodium Level 137 mmol/L (136-145)
[2023-06-09 18:24] LABS: Protein:Creat Ratio 161 mg/g CRE (0-200)
== END | disposition home or self-care (01) ==
LOC: LAB 16:24
PROVIDERS: PCP Family Medicine; Referring Provider Registered Nurse; Visit Provider Registered Nurse
DX: Z87.59 Personal history of other complications of pregnancy, childbirth and the puerperium (principal)
CPT/HCPCS: 36415; 80053; 82570; 84156

== ENCOUNTER 2023-06-19 14:00 | Outpatient (RCR) | payer OTHER, SELFPAY | END 2023-07-01 23:59 | LOC: DC 14:00 | PROVIDERS: PCP Family Medicine; Referring Provider Nurse Practitioner Women's Health; Visit Provider Nurse Practitioner Women's Health | DX: O24.319 Unspecified pre-existing diabetes mellitus in pregnancy, unspecified trimester (principal) | CPT/HCPCS: 97803 ==

== ENCOUNTER → 2023-08-23 | Outpatient (CLI) | payer OTHER, SELFPAY ==
[2023-08-23 14:34] LABS: Absolute Lymphocyte Count 2.71 X10^3/uL (0.83-4.51); Absolute Neutrophil Count 12.4 X10^3/uL (2.0-7.7); Basophil# 0.04 X10^3/uL; Basophil% 0.2 % (0-1); Eosinophil# 0.38 X10^3/uL; Eosinophils% 2.3 % (0-5); Hematocrit 36.3 % (37-47); Hemoglobin 11.8 g/dL (12.0-15.0); Lymphocyte # 2.71 X10^3/ul (0.83-4.51); Lymphocyte % 16.5 % (19-41); Mean Corp Hgb Conc 32.5 g/dL (32-36); Mean Corpuscular Hgb 27.1 pg (27.0-32.0); Mean Corpuscular Volume 83.4 fL (81-99); Monocyte# 0.81 X10^3/uL; Monocyte% 4.9 % (0-10); NRBC Flagged by Analyzer 0 % (0-5); Neutrophil # 12.37 X10^3/uL (2.7-7.7); Neutrophil % 75.3 % (47-70); Platelet Count 542 K/mm3 (150-450); RBC Distribution Width CV 13.6 % (11.6-14.6); RBC Distribution Width SD 41.2 fl (35.1-43.9); Red Blood Count 4.35 M/mm3 (4.2-5.4); White Blood Count 16.4 K/mm3 (4.4-11.0)
[2023-08-23 15:56] LABS: HIV - WCH Non-Reactive (Nonreactive); Syphilis Antibodies Non-reactive
== END | disposition home or self-care (01) ==
LOC: PAVLAB 14:12
PROVIDERS: PCP Family Medicine; Referring Provider Nurse Practitioner Women's Health; Visit Provider Nurse Practitioner Women's Health
DX: O09.90 Supervision of high risk pregnancy, unspecified, unspecified trimester (principal); Z3A.00 Weeks of gestation of pregnancy not specified
CPT/HCPCS: 36415; 85025; 86703; 86780

== ENCOUNTER → 2023-09-20 | Outpatient (CLI) | payer OTHER, SELFPAY ==
[2023-09-20 16:28] LABS: Absolute Lymphocyte Count 3.11 X10^3/uL (0.83-4.51); Absolute Neutrophil Count 9.3 X10^3/uL (2.0-7.7); Basophil# 0.05 X10^3/uL; Basophil% 0.4 % (0-1); Eosinophil# 0.38 X10^3/uL; Eosinophils% 2.7 % (0-5); Hematocrit 37.3 % (37-47); Hemoglobin 11.7 g/dL (12.0-15.0); Lymphocyte # 3.11 X10^3/ul (0.83-4.51); Lymphocyte % 21.9 % (19-41); Mean Corp Hgb Conc 31.4 g/dL (32-36); Mean Corpuscular Volume 82.9 fL (81-99); Mean Platelet Vol. 8.2 fl (6.2-12.0); Monocyte# 1.22 X10^3/uL; Monocyte% 8.6 % (0-10); NRBC Flagged by Analyzer 0 % (0-5); Neutrophil # 9.32 X10^3/uL (2.7-7.7); Neutrophil % 65.7 % (47-70); Platelet Count 502 K/mm3 (150-450); RBC Distribution Width CV 14.4 % (11.6-14.6); RBC Distribution Width SD 43.1 fl (35.1-43.9); White Blood Count 14.2 K/mm3 (4.4-11.0)
[2023-09-20 17:05] LABS: ALB/GLOB Ratio 0.6 RATIO (0.9-2.4); AST(SGOT) 11 U/L (15-37); Alanine Aminotransfer ALT/SGPT 14 U/L (13-56); Albumin, Serum 2.6 g/dL (3.2-5.0); Alkaline Phosphatase 199 U/L (45-117); Anion Gap 6 (5-15); BUN 8 mg/dL (7-18); BUN/Creat Ratio 11.1 RATIO (10-20); Chloride 108 mmol/L (98-107); Creatinine, Serum 0.72 mg/dL (0.55-1.02); EST Glomerular Filtration Rate 98 mL/min (>60); Est Glom Filt Rate - Afr Amer 118 mL/min (>60); Globulin 4.4 g/dL (2.2-4.2); Glucose 89 mg/dL (74-106); Potassium 3.9 mmol/L (3.5-5.1); Sodium Level 137 mmol/L (136-145); Uric Acid 4.7 mg/dL (2.6-6.0)
[2023-09-20 17:36] LABS: Protein, Urine (Random) 16.6 mg/dL (<11.9); Protein:Creat Ratio 89 mg/g CRE (0-200)
== END | disposition home or self-care (01) ==
PROVIDERS: PCP Family Medicine; Referring Provider Registered Nurse; Visit Provider Registered Nurse
DX: Z87.59 Personal history of other complications of pregnancy, childbirth and the puerperium (principal); R03.0 Elevated blood-pressure reading, without diagnosis of hypertension
CPT/HCPCS: 36415; 80053; 82570; 84156; 84550; 85025

== ENCOUNTER 2023-10-09 07:15 | Inpatient (IN) | payer OTHER, SELFPAY ==
[2023-10-09] VITALS (47 sets, daily range): BP systolic 78–162; BP diastolic 39–94; PULSE 87–120; TEMP 36.4–36.8; O2SAT 96–99; BMI 40.4
--- NOTE | 2023-10-09 | FALS_PTH ---
PATHOLOGY RESULTS PATIENT: LEONARD RUBI LOC: WP U#:[id number] AGE/SX: 33/F ROOM: [facility] RE10/09/[address]: Megan Vyas CNM : 1990 BED: 1 DIS: 10/13/2023 SPEC #: [id number] RECD: 10/10/23 08:13 STATUS: LEIA RERubén #: [id number] ANJANA: 10/09/23 00:[address]: Tejal Madrid DEPT: SURGICAL PATHOLOGY RECD BY: Alexa Mendez ENTERED: 10/10/23 08:13 SP TYPE: FALL TUBES OTHR DR: Dr. Buddy Rubio, QUIANA Doe Tissues: Fallopian tube Procedures: Surgery Specimen Level II Comments: @ Ordering doctor for [facility] edited from EUFEMIA to @ by JEANINE at 10/11/23819 @ Submitting doctor edited from EUFEMIA to @ by JEANINE at 10/11/23819 HEADER OPERATION: Tubal ligation PRE-OP DIAGNOSIS: Sterilization TISSUE SUBMITTED: Fallopian tubes, suture in right MICROSCOPIC DIAGNOSIS Bilateral fallopian tubes, salpingectomy: Bilateral fallopian tubes, no pathologic diagnosis. DOYLE:julian 10/11/2023 MICROSCOPIC DESCRIPTION Slides are reviewed. GROSS DESCRIPTION Received in fixative is one container labeled with the patient's name and designated bilateral fallopian tubes, stitch in right. The specimen consists of bilateral fallopian tubes including fimbrial ends. The right fallopian tube measures 8.0 cm in length and 0.5 cm in diameter and the left fallopian tube measures 7.0 cm in length and 0.5 cm in diameter. Sections reveal unremarkable cut surfaces. Airline Hostess sections are submitted in two cassettes as follows: 1 - right fallopian tube, 2 - left fallopian tube. / DOYLE:julian 10/10/2023 TC:4 CPT: 74459 x2
--- OUTSIDE RECORDS SUMMARY | 2023-10-09 06:22 | XMS RPT_ITS | CCD ---
Author Name Unknown Address [address] [place] [address] Organization [facility] Care Team Providers Care Audio Visual Engineer Name Role Phone MIRA BETTS Referring Unavailab le [facility] PRIMARY CARE, Primary Care Unavailable MIRA BETTS Attending Unavailab leoncio [facility], Primary Care Unavailable TAHMINA NIELSEN Attending Unavailable MIRA BETTS Referring Unavailab KHARI So Attending Unavailable NO PRIMARY CAREMD Primary Care Unavailable MIRA BETTS Referring Unavailab le [facility], Primary Care Unavailable BREE NICHOLS Attending Unavailable FERMIN SAHU Referring UnavailKHARI Brenner Attending Unavailable BUDDY MAE Primary Care Unavailable MIRA BETTS Referring UnavailKHARI De Jesus Referring Unavailable JOAQUIN AKBAR Attending Unavailable BUDDY MAE Primary Care Unavailable Allergies Allergy Classification Reported Allergen(s) Allergy Type Date of Onset Reaction(s) Facility (1 source) Cefaclor; Translations: [CEFACLOR] Drug Allergy 5 [facility] Repository (1 source) House dust mite; Translations: [DUST MITE EXTRACT] Propensity to adverse reactions to drug (disorder) 9 [facility] Repository (1 source) INSECT EXTRACT; Translations: [INSECT EXTRACT] Propensity to adverse reactions to drug (disorder) 6 [facility] Repository (1 source) MOLDS & SMUTS; Translations: [MOLDS & SMUTS] Propensity to adverse reactions to drug (disorder) 9 [facility] Repository Results Test Name Value Interpretation Reference Range Facil ity Encounters Encounter Date Encounter Type Care Provider Facility Start: 09-29-2023 End: 09-29-2023 ambulatory [facility] Start: 09-29-2023 End: 09-29-2023 ambulatory [facility] Start: 08-28-2023 End: 08-28-2023 ambulatory NO PRIMARY C[facility] Start: 07-24-2023 End: 07-24-2023 ambulatory NO PRIMARY C[facility] Start: 06-26-2023 End: 06-26-2023 [facility] Payers Date Payer Category Payer Unknown [id number] 2.16. [id number] 1989 Unknown [id number] 2.16. [id number] 1989 Unknown [id number] 2.16. [id number] 1989 Unknown [id number] 2.16. [id number] 1989 Unknown [id number] 2.16. [id number] 1989 Unknown [id number] 2.16. [id number] Private Health Insurance [id number] Clinical Note 09-29-2023 Note Date & Type Note Facility 09-29-2023 Note Leonard segura is here for consultation at the request of Buddy Mae MD for: Hydronephrosis History of Presenting Problem: Patient is accompanied by and history obtained from herself and . Carrying fetus with right pyelectasis that was 1.2 cm up to 1.9 today per family. No other abnormalities. No family hx of kidney problems. They have a 3 year old daughter who is healthy. No utis. Past Medical History: Past Medical History: Diagnosis Date Eosinophilic esophagitis 2017 Diagnosed due to issues with swallowing food/choking episodes Treatment Center Plan of Care Gestational diabetes mellitus (GDM) 1hr= 194 Heart murmur As an , resolved History of pre-eclampsia in prior , currently History of premature rupture of membranes (PPROM) 36 weeks Past Surgical History: Procedure Laterality Date COLONOSCOPY 2017 x2 UPPER GASTROINTESTINAL ENDOSCOPY 2017 Allergies: Allergies Allergen Reactions Cefaclor Hives Dust Mite Extract Other (See Comments) Insect Extract Swelling Molds & Smuts Other (See Comments) Medications: Outpatient Encounter Medications as of 09/29/2023 Medication Sig Dispense Refill Magnesium 250 MG TABS Take by mouth omeprazole (PRILOSEC) 40 MG capsule Take 1 Capsule (40 mg) by mouth daily loratadine (CLARITIN) 10 MG tablet Take 1 Tablet (10 mg) by mouth daily as needed for Allergies NOVOLIN N FLEXPEN RELION 100 UNIT/ML SUPN 16 units am, 48 at HS aspirin EC (ECOTRIN LOW STRENGTH) 81 MG EC tablet Take 1 Tablet (81 mg) by mouth daily Vit-Fe Fumarate-FA ( VITAMINS PO) Take 1 Tablet by mouth daily Blood Glucose Monitoring Suppl (ASSURE PRO BLOOD GLUCOSE METER) TIARRA Blood-Glucose Meter Active 0 .MEDSUPPLY April 26, 2023 11:00pm As directed- Test fasting and 2 hours after meals No facility-administered encounter medications on file as of 09/29/2023. Family Medical History: History reviewed. No pertinent family history. Social History: Social History Socioeconomic History Marital status: Spouse name: Not on file Number of children: Not on file Years of education: Not on file Highest education level: Not on file Occupational History Not on file Tobacco Use Smoking status: Never Smokeless tobacco: Never Substance and Sexual Activity Alcohol use: Not Currently Drug use: Never Sexual activity: Not on file Other Topics Concern Not on file Social History Narrative Not on file Additional History Review of Systems: No cardiac, respiratory/airway or bleeding disorders. See HPI for others pertinent to urology. Physical Examination: Physical Exam Vitals: 09/29/23 1236 Weight: (!) 98.9 kg : Bladder non-distended, gravid abdomen Laboratory Testing: No results found for this visit on 09/29/23. No results found for: URINECULT Imaging: OB US reports reviewed. See hpi Assessment & Plan: Leonard was seen today for hydronephrosis. Diagnoses and all orders for this visit: Encounter for repeat ultrasound of pyelectasis in zhu , antepartum - AMB Referral To Urology 28 weeks gestation of - AMB Referral To Urology Today we discussed the various etiologies of hydronephrosis, including vesicioureteral reflux, obstruction, and physiologic dilation. We will continue to monitor the patient with serial ultrasounds and may consider further workup with a VCUG or MAG-3 Renal Lasix Scan in the future should the hydronephrosis worsen or the child develops UTI, pain, or other symptoms. Plan is to place baby on amox 10 mg/kg/day and obtain office ultrasound within 1 month after . All questions answered. Joaquin Akbar MD September 29, 2023 [facility] Clinical Note 09-29-2023 Note Date & Type Note Facility 09-29-2023 Note I saw Leonard for gene tic counseling along with the licensed genetic counselor. See counseling letter for further details. 33 y.o. at 33w3d with Active Non-Hospital Problems Diagnosis Date Noted Pyelectasis of fetus on ultrasound 08/28/2023 Priority: High 1. Single, living IUP at 33w 3d by clinical MAHAMED. 2. There is appropriate interval growth: EFW is 2533 g at 68%. 3. Amniotic fluid volume appeared normal, 16.6 cm. 4. Placenta is normal without evidence of previa. 5. Right hydronephrosis with dilated calyces. 6. The remainder of the visualized anatomy appears normal, with limitations as noted above. Impression: UTD A2-3, right hydronephrosis with dilated calyces. Cell free DNA aneuploidy screening is low risk per patient report. Plan: 1. Continued obstetrical care with her primary flight data technician is recommended. 2. Follow up in 3 weeks to evaluate biometric parameters and renals. These are planned with the Treatment Center. 3. surveillance as follows: as clinically indicated. 4. Pt completed consultation with Pediatric Urology. Plan is to place baby on amoxicilllin 10 mg/kg/day and obtain office ultrasound within 1 month after . Please call [facility] at [phone] to schedule. 5. Delivery is appropriate at your local institution with follow up as indicated. 6. Mode and timing of delivery are based on the usual obstetrical indications. 7. Pediatric provider to determine if additional evaluations are recommended prior to discharge. 8. Additional follow up as clinically indicated. Eosinophilic esophagitis 09/29/2023 -Managed by Dr. Ascencion Beasley, [facility] in [place], [place] -Diagnosed in [id number] after endoscopy and 2 colonoscopy procedure performed -Pt was having trouble swallowing and choking episodes before diagnosis -Taking Omeprazole 40mg daily -Pt reports she was having flare ups in early 2022, was scheduled to have endoscopy 03/2023 but then found she was , now planning endoscopy -Pt reports symptoms well managed with Omeprazole so far during Gestational diabetes mellitus (GDM) 09/28/2023 -1hr= 194 ( 08/21/23) -A1C= 5.8 (08/21/23) -Managed with [facility], Dr. Marlon Holden -On NPH 16 AM and 48 HS -GDMA1 with 1st - No BG log for review - MFM consult for GDM not requested, available if desired. Reviewed on 09/29/2023 Care plan discussed with patient 08/29/2023 UTD A2-3, right hydronephrosis with dilated calyces. Cell free DNA aneuploidy screening is low risk per patient report. Plan: 1. Continued obstetrical care with her primary flight data technician is recommended. 2. Follow up in 3 weeks to evaluate biometric parameters and renals. These are planned with the Treatment Center. 3. surveillance as follows: as clinically indicated. 4. Pt completed consultation with Pediatric Urology. Plan is to place baby on amoxicilllin 10 mg/kg/day and obtain office ultrasound within 1 month after . Please call [facility] at [phone] to schedule. 5. Delivery is appropriate at your local institution with follow up as indicated. 6. Mode and timing of delivery are based on the usual obstetrical indications. 7. Pediatric provider to determine if additional evaluations are recommended prior to discharge. 8. Additional follow up as clinically indicated. History of premature rupture of membranes (PPROM) 08/29/2023 -PPROM at 36 weeks with 1st History of pre-eclampsia in prior , currently 08/29/2023 -Baseline PEC labs completed by OB 06/09/23 (WNL): ALT- 16, AST-8, P:C ratio- 0.161 -On LDASA -Per pt, diagnosed with severe PEC after PPROM at 36 weeks. Presented with severe range Bps, no physical symptoms. Was on magnesium sulfate during labor and . -Pt has home BP cuff and checks twice daily, reports her BP at home ranges 120-130s/70-80s Follow up FTC ultrasound in 3 weeks. Chart review and preparation: 15 minutes. Face to face: 10 minutes. Documentation and care coordination: 10 minutes. Total time spent on patient care today: 35 minutes. [facility] Summary Purpose Family History No Family History Records FoundNo Family History Records Found Advance Directives No Advanced Directives Records FoundNo Advanced Directives Records Found Additional Source Comments INFORMATION SOURCE (unrecogn ized section and content) DATE CREATED AUTHOR AUTHOR'S ORGANIZ ATION 10/04/2023 [facility] FOR RECORDS PERTAINING TO PATIENTS WHO ARE OR HAVE BEEN ENROLLED IN A CHEMICAL DEPENDENCY/SUBSTANCEABUSE PROGRAM, SOME INFORMATION MAY BE OMITTED. This clinical summary was aggregated from multiple sources. Caution should be exercised in using it in the provision of clinical care. This summary normalizes information from multiple sources, and as a consequence, information in this document may materially change the coding, format and clinical context of patient data. In addition, data may be omitted in some cases. CLINICAL DECISIONS SHOULD BE BASED ON THE PRIMARY CLINICAL RECORDS. [employer] provides no warranty or guarantee of the accuracy or completeness of information in this document.
[2023-10-09 07:15] LABS: ROM Internal Control Test YES-OK TO RESULT pt. (Internal QC)
[2023-10-09 07:16] LABS: ROM Patient Test POSITIVE (Negative); Record Kit Lot#, ROM+ K1374
--- OUTSIDE RECORDS SUMMARY | 2023-10-09 07:21 | XMS RPT_ITS | CCD ---
Author Name Unknown Address [address] [place] [address] Organization [facility] Care Team Providers Care Health Care Manager Name Role Phone MIRA BETTS Referring Unavailab [...] source) Cefaclor; Translations: [CEFACLOR] Drug Allergy 5 [facility] Repository (1 source) House dust mite; Translations: [DUST MITE EXTRACT] Propensity to adverse reactions to drug (disorder) 9 [facility] Repository (1 source) INSECT EXTRACT; Translations: [INSECT EXTRACT] Propensity to adverse reactions to drug (disorder) 6 [facility] Repository (1 source) MOLDS & SMUTS; Translations: [MOLDS & SMUTS] Propensity to adverse reactions to drug (disorder) 9 [facility] Repository Results Test Name Value Interpretation Reference [...] Hos pital Start: 06-26-2023 End: 06-26-2023 [facility]ulatory [facility] Payers Date Payer Category Payer Unknown [id number] 2.16. [id number] 1989 Unknown [id number] 2.16. [id number] 1989 Unknown [id number] 2.16. [id number] 1989 Unknown [id number] 2.16. [id number] 1989 Unknown [id number] 2.16. [id number] 1989 Unknown [id number] 2.16. [id number] Private Health Insurance [id number] Clinical Note 09-29-2023 Note Date & Type [...] answered. Joaquin Akbar MD September 29, 2023 [facility] Clinical Note 09-29-2023 Note Date & Type [...] 1. Continued obstetrical care with her primary submarine cable equipment technician is recommended. 2. Follow up in 3 weeks to evaluate biometric parameters and renals. These are planned with the Treatment Center. 3. surveillance as follows: as clinically indicated. 4. Pt completed consultation with Pediatric Urology. Plan is to place baby on amoxicilllin 10 mg/kg/day and obtain office ultrasound within 1 month after . Please call [facility] at [phone] to schedule. 5. Delivery is appropriate at your local institution with follow up as indicated. 6. Mode and timing of delivery are based on the usual obstetrical indications. 7. Pediatric provider to determine if additional evaluations are recommended prior to discharge. 8. Additional follow up as clinically indicated. Eosinophilic esophagitis 09/29/2023 -Managed by Dr. Ascencion Beasley, [facility] in [place], [place] -Diagnosed in [id number] after endoscopy and 2 colonoscopy procedure performed [...] ( 08/21/23) -A1C= 5.8 (08/21/23) -Managed with [facility], Dr. Marlon Holden -On NPH 16 [...] 1. Continued obstetrical care with her primary submarine cable equipment technician is recommended. 2. Follow up in 3 weeks to evaluate biometric parameters and renals. These are planned with the Treatment Center. 3. surveillance as follows: as clinically indicated. 4. Pt completed consultation with Pediatric Urology. Plan is to place baby on amoxicilllin 10 mg/kg/day and obtain office ultrasound within 1 month after . Please call [facility] at [phone] to schedule. 5. Delivery is appropriate at [...] spent on patient care today: 35 minutes. [facility] Summary Purpose Family History No Family History Records FoundNo Family History Records Found Advance Directives No Advanced Directives Records FoundNo Advanced Directives Records Found Additional Source Comments INFORMATION SOURCE (unrecogn ized section and content) DATE CREATED AUTHOR AUTHOR'S ORGANIZ ATION 10/04/2023 [facility] FOR RECORDS PERTAINING TO PATIENTS WHO ARE [...] BE BASED ON THE PRIMARY CLINICAL RECORDS. [employer] provides no warranty or guarantee of the accuracy or completeness of information in this document.
[2023-10-09] MEDS: Lactated Ringers 1,000 ML 50 ML IV (08:15)
[2023-10-09] MEDS: NIFEdipine 10 MG Capsule PO (08:18)
[2023-10-09 08:26] LABS: Group B Strep DNA By PCR Negative (Negative); Internal Control PASS; Probe Check PASS; Specimen Processing Control PASS
[2023-10-09 08:29] LABS: Absolute Lymphocyte Count 2.64 X10^3/uL (0.83-4.51); Basophil# 0.09 X10^3/uL; Basophil% 0.5 % (0-1); Eosinophils% 1.8 % (0-5); Hematocrit 41.1 % (37-47); Hemoglobin 12.8 g/dL (12.0-15.0); Lymphocyte # 2.64 X10^3/ul (0.83-4.51); Lymphocyte % 15.5 % (19-41); Mean Corp Hgb Conc 31.1 g/dL (32-36); Mean Corpuscular Hgb 25.7 pg (27.0-32.0); Mean Corpuscular Volume 82.4 fL (81-99); Mean Platelet Vol. 8.5 fl (6.2-12.0); Monocyte% 4.7 % (0-10); NRBC Flagged by Analyzer 0 % (0-5); Neutrophil # 13.04 X10^3/uL (2.7-7.7); Neutrophil % 76.5 % (47-70); Platelet Count 541 K/mm3 (150-450); RBC Distribution Width CV 14.3 % (11.6-14.6); Red Blood Count 4.99 M/mm3 (4.2-5.4)
[2023-10-09 08:41] LABS: Protein:Creat Ratio 769 mg/g CRE (0-200)
[2023-10-09 09:04] LABS: AST(SGOT) 9 U/L (15-37); Alanine Aminotransfer ALT/SGPT 14 U/L (13-56); Creatinine, Serum 0.59 mg/dL (0.55-1.02); EST Glomerular Filtration Rate 124 mL/min (>60); Est Glom Filt Rate - Afr Amer 150 mL/min (>60); Estimated Creatinine Clearance 106.26 ml/min; Uric Acid 4.8 mg/dL (2.6-6.0)
[2023-10-09] MEDS: Azithromycin 500 MG in Dextrose 5%-Water (250mL Bag) 250 ML 250 MG IV (09:04)
[2023-10-09 09:19] LABS: Bedside Glucose 79 mg/dL (74-106)
[2023-10-09 09:28] LABS: Syphilis Antibodies Non-reactive
[2023-10-09 10:41] LABS: Bedside Glucose 95 mg/dL (74-106)
[2023-10-09] MEDS: Betamethasone/Betamethasone 30 MG/5 ML Vial 12 MG IM (10:42)
[2023-10-09] MEDS: Ampicillin 2 GM in 0.9% Normal Saline (100mL MB+) 100 ML IV ×2 (10:43→18:07)
[2023-10-09] MEDS: Acetaminophen 500 MG Tablet PO ×2 (10:59→21:30)
[2023-10-09] MEDS: 0.9% Saline Lock 10 ML Syringe IV ×2 (11:28→18:06)
--- NOTE | 2023-10-09 12:17 | HP.PCM.OB_ITS ---
HPI - General General Date of Admission: 10/09/23 Chief Complaint: leaking of fluid HPI Narrative LEONARD RUBI, is a 33 F who presents at 34.6weeks with leaking of fluid and elevated BPs at home. denies headaches, visual changes, ruq pain. Maternal Data Information MAHAMED Calculator Estimated Delivery Date Method Current WG Current Estimate 11/14/23 LMP (Certain) 34w 6d PFSH PFS Medical History (Updated 10/09/23 @ 12:20 by Megan Vyas CNM) COVID-19 Eosinophilic esophagitis History of gestational diabetes History of pre-eclampsia History of premature rupture of membranes (PPROM) Vaginal delivery Home Medications vits no.130-ferrous fum 27 mg iron-folic acid 800 mcg tablet 1 tab PO DAILY Check with primary doctor 03/28/20 [History Last Taken 10/08/23 22:00] omeprazole 40 mg capsule,delayed release 40 mg PO DAILY 03/18/21 [History Last Taken 10/08/23 22:00] blood sugar diagnostic (Blood Glucose Test strips) #120 ea 04/27/23 [Rx Last Taken Unknown] blood-glucose meter #1 ea 04/27/23 [Rx Last Taken Unknown] lancets #200 ea 04/27/23 [Rx Last Taken Unknown] aspirin 81 mg tablet,delayed release 81 mg PO DAILY 05/19/23 [History Last Taken 10/08/23 22:00] loratadine 10 mg tablet (Claritin) 10 mg PO DAILY 05/19/23 [History Last Taken 10/08/23 22:00] insulin NPH isoph U-100 human 100 unit/mL (3 mL) subcutaneous pen 40 unit (0.4 mL) subcut QPM #36 mL 06/14/23 [Rx Last Taken 10/08/23 22:00] Allergy/AdvReac Type Severity Reaction Status Date / Time cefaclor [From [facility]] Allergy Hives Verified 10/09/23 06:31 Family History Grandfather Diabetes maternal Surgical History [place] teeth extracted Social History adopted: No household members: spouse and children number of children: 1 current occupational status: employed 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 current occupational exposures/hazards: No pets and animals: No history of recent travel: No sexually active: Yes Smoking Status: Never smoker alcohol intake: never substance use type: does not use diet: gluten free well-balanced diet: daily or most days caffeine: Yes Type: tea Number of servings: 1 eating out: rarely or never during the past year weight has: remained stable what type of physical activity do you participate in: none sherrell/protestant: Episcopalian seatbelt use: always do you feel safe at home: Yes additional social history: [employer] Patient works at [employer] History 2 Elective abortions Hx Para 1 Spontaneous abortions Hx # Term Pregnancies 1 Ectopic pregnancies Hx # Pregnancies Multiple births # of living children 1 Past Pregnancies Del. Date Name GA/Weeks Outcome Route Bth Weight Infant Gen Labor Lgth Anesthesia Del Locatn Provider FOB Unknown 03/29/20 Cristal 36 live - 5lbs 2oz Female epidural [facility] Quiana Massey Delivery Date: Last Updated by: Isamar Deluca MD PPROM, severe pre E, Visit Details Expected Delivery Route/Plan Labor Preferences- CB/BF classes: no labor support person: Brian labor intervention preferences: [] pain management options preferred: epidural cut cord/dad catch: cord : yes PP control planned: discussed discussed possible routes of delivery and associated risks: [] special requests: [] Plans Covid status: [] Flu vaccine: given Tdap vaccine: 08/23/23 Rhogam: NA LARC form signed: Yes Problem list reviewed and updated with the most current plan of care details and appropriate orders placed. Relevant counseling for the gestational age provided. Continue routine care and follow up unless otherwise noted in visit notes/problem list details OB Flowsheet Initial Weight: 201 lb Date -?-?-?--?-?-?-?-?-?-?-?-?- EGA Weight BP Urine Prot -?-?-?-?-?-?-?-?-?-?-?-?- Glucose FHR FuHt Pres Dilation -?-?-?-?-?-?-?-?-?-?-?-?- Effaced St Visit Note 04/06/23 -?-?-?-?-?-?-?-?-?-?-?-?- 8w 2d 201 lb 2 oz (+2 oz) 126/81 Negative -?-?-?-?-?-?-?-?-?-?-?-?- Negative 171 -?-?-?-?-?-?-?-?-?-?-?-?- SM US done with hospital due to machine broke. 05/05/23 -?-?--?-?-?-?-?-?-?-?-?-?- 12w 3d 201 lb (+0 oz) 124/82 -?-?-?-?-?-?-?-?-?-?-?-?- 164 -?-?-?-?-?-?-?-?-?-?-?-?- JV- pt complains of rash all over body. her pcp gave her a steroid pack. will try vistaril first as is diabetic. starting insulin NPH at bedtime due to persistent elevations in glucose at fasting. 06/09/23 -?-?-?-?-?-?-?-?-?-?-?-?- 17w 3d 201 lb 6 oz (+6 oz) 124/76 Negative -?-?-?-?-?-?-?-?-?-?-?-?- Negative 158 -?-?--?-?-?-?-?-?-?-?-?-?- LC- no vb/crampi ng. anatomy scheduled end of month. on 18U NPH with improved fasting glucose levels. baseline PEC labs ordered for hx. on LDA. 07/03/23 -?-?-?-?-?-?-?-?-?-?-?-?- 20w 6d 203 lb 2 oz (+2 lb 2 oz) 114/80 Negative -?-?-?-?-?-?-?-?-?-?-?-?- Negative 148 -?-?-?-?-?-?-?-?-?-?--?-?- LC- no vb/crampi ng. glucose stable with managing. LC- no vb/cramping. glucose stable with managing. anatomy scan reviewed. 08/03/23 -?-?-?-?-?-?--?-?-?-?-?-?- 25w 2d 207 lb 4 oz (+6 lb 4 oz) 110/75 Negative -?-?-?-?-?-?-?-?-?-?-?-?- Negative 135 30 -?-?-?-?-?-?-?-?-?-?-?-?- KW-no vb/lof/ctx . good fm. Flu shot today. Slight increase on insulin. Overall BS remain stable. KW-no vb/lof/ctx. good fm. F kaylie shot today. Slight increase on insulin. Overall BS remain stable. LARC done today 08/23/23 -?-?-?-?-?-?-?-?-?-?-?-?- 28w 1d 210 lb 8 oz (+9 lb 8 oz) 128/74 Negative -?-?-?-?-?-?-?-?-?-?-?-?- Negative 136 30 -?-?-?-?-?-?-?-?-?-?-?-?- MH-No VB, LOF. G ood FM. Has US 08/28 to check kidney and growth. Tdap, lark, labs. Her BS readings all WNL, sees Dr Smith. 09/05/23 -?-?-?-?-?-?-?-?-?-?-?-?- 30w 0d 216 lb 8 oz (+15 lb 8 oz) 126/89 Negative -?-?-?-?-?-?-?-?-?-?-?-?- Negative 160 32 -?-?-?-?-?-?-?-?-?-?-?-?- KW-No vb/lof/ctx . good fm. BS remain stable-increased insulin again. US reviewed. 09/18/23 -?-?-?-?-?-?-?-?-?-?-?-?- 31w 6d 219 lb (+18 lb) 121/83 Negative -?-?-?-?-?-?-?-?-?-?-?-?- Negative 150 -?-?-?-?-?-?-?-?-?-?-?-?- -NST only reac tive. BS still stable 09/20/23 -?-?-?-?-?-?-?-?-?-?-?-?- 32w 1d 219 lb 4 oz (+18 lb 4 oz) 143/89 Negative -?-?-?-?-?-?-?-?-?-?-?-?- Negative 125 33 -?-?-?-?-?-?-?-?-?-?-?-?- LC- no vb/ct/lof . good fm.reactive nst. LC- no vb/ct/lof. good fm.re active nst. hx of PEC, elevated BPx1. no headaches, visual changes or ruq pain. pec outpt labs ordered for baselines. will take bps at home bid. LC- no vb/ct/lof. good fm.re active nst. hx of PEC, elevated BPx1. no headaches, visual changes or ruq pain. pec outpt labs ordered for baselines. will take bps at home bid. consulted with BRIANA agrees with management 09/26/23 -?-?-?-?-?-?-?-?-?-?-?-?- 33w 0d 218 lb (+17 lb) 130/84 Negative -?-?-?-?-?-?-?-?-?-?-?-?- Negative 130 -?-?-?-?-?-?-?-?-?-?-?-?- NST only reac tive 09/29/23 -?-?-?-?-?-?-?-?-?-?-?-?- 33w 3d 218 lb 7 oz (+17 lb 7 oz) 132/89 Negative -?-?-?-?-?-?-?-?-?-?-?-?- Negative 125 33 -?-?-?-?-?-?-?-?-?--?-?-?- LC- no vb/ctx/lo f. good fm. bp at home 120-130/70-80s. no mora/visual changes/ ruq pain. LC- no vb/ctx/lof. good fm. bp at home 120-130/70-80s. no mora/visual changes/ ruq pain. reactive nst. 10/03/23 -?-?-?-?-?-?-?-?-?-?-?-?- 34w 0d 220 lb 4 oz (+19 lb 4 oz) 122/85 Negative -?-?-?-?-?-?-?-?-?-?-?-?- Negative 125 34 -?-?-?-?-?-?-?-?-?-?-?-?- KW- reactive NST . no vb/lof/ctx. good fm. 10/06/23 -?-?-?-?-?-?-?-?-?-?-?-?- 34w 3d 223 lb 4 oz (+22 lb 4 oz) 125/87 Negative -?-?-?-?-?-?-?-?-?-?-?-?- Negative 125 -?-?-?-?-?-?-?-?-?-?-?-?- KW-NST reactive ROS Cardiovascular Cardiovascular: Denies abdominal pain, chest pain, diaphoresis or dyspnea Respiratory/Chest Respiratory/Chest: Denies change in mental status, chest congestion, chest tightness, cough, shortness of breath at rest, shortness of breath with exertion, breast mass, breast pain, breast skin changes, breast swelling, change in breast shape or nipple discharge Genitourinary Genitourinary: Reports change in urinary stream Musculoskeletal Musculoskeletal: Reports none Integumentary Integumentary: Reports none Neurologic Neurologic: Reports none Psychiatric Psychiatric: Reports none Endocrine Endocrinology: Reports none Hematologic/Lymphatic Hematologic/Lymphatic: Reports none Allergic/Immunologic Allergic/Immunologic: Reports none Vital Signs Vital Signs Vital Signs: 10/09/23 06:33 10/09/23 06:33 10/09/23 06:45 Temperature Temperature Source Pulse Rate 103 H Blood Pressure 143/94 H BP Systolic 143 BP Diastolic 94 Pulse Ox 99 10/09/23 06:45 10/09/23 06:45 10/09/23 06:45 Temperature Temperature Source Pulse Rate 105 H 109 H Blood Pressure BP Systolic BP Diastolic Pulse Ox 98 10/09/23 06:45 10/09/23 06:45 10/09/23 06:50 Temperature 98.1 F Temperature Source Temporal Pulse Rate 110 H Blood Pressure BP Systolic BP Diastolic Pulse Ox 10/09/23 06:50 10/09/23 06:55 10/09/23 06:55 Temperature Temperature Source Pulse Rate 113 H Blood Pressure BP Systolic BP Diastolic Pulse Ox 98 99 10/09/23 07:10 10/09/23 07:10 10/09/23 07:25 Temperature Temperature Source Pulse Rate 110 H Blood Pressure 144/90 H 149/86 H BP Systolic 144 149 BP Diastolic 90 86 Pulse Ox 10/09/23 07:25 10/09/23 07:40 10/09/23 07:40 Temperature Temperature Source Pulse Rate 97 103 H Blood Pressure 151/92 H BP Systolic 151 BP Diastolic 92 Pulse Ox 10/09/23 07:55 10/09/23 07:55 10/09/23 08:33 Temperature Temperature Source Pulse Rate 100 Blood Pressure 162/85 H 132/79 H BP Systolic 162 132 BP Diastolic 85 79 Pulse Ox 10/09/23 08:33 10/09/23 08:39 10/09/23 08:39 Temperature Temperature Source Pulse Rate 95 96 Blood Pressure 134/78 H BP Systolic 134 BP Diastolic 78 Pulse Ox 10/09/23 09:56 10/09/23 09:56 10/09/23 10:08 Temperature Temperature Source Temporal Pulse Rate 98 Blood Pressure 115/61 BP Systolic 115 BP Diastolic 61 Pulse Ox 10/09/23 10:08 10/09/23 11:13 10/09/23 11:13 Temperature 97.7 F L Temperature Source Pulse Rate 98 Blood Pressure 132/74 H BP Systolic 132 BP Diastolic 74 Pulse Ox Weight Weight: 220 lb 14.451 oz Body Mass Index (BMI) 40.4 Physical Exam Const alert, oriented x3 and no apparent distress General Appearance: cooperative, comfortable and well kempt Orientation / Consciousness: awake and oriented to person Exam Limitations: no limitations HEENT normocephalic Neck full ROM Chest inspection of chest normal Resp normal respiratory effort, normal air movement and no retractions Effort and Inspection: able to speak in complete sentences and symmetric chest movement Cardio regular rate Peripheral Pulses: pulses 2+ throughout GI normal to inspection, nondistended, normoactive bowel sounds Inspection: gravid no CVA tenderness and appearance of the vagina normal External Female Exam: normal appearance of the urethra; Negative for external lesion OB / External & Speculum: external exam normal Manual OB Exam: estimated gestational size appropriate and presentation cephalic Uterus Palpation: Negative for uterus tender Extremity normal to inspection Skin no rashes or lesions noted Neuro deep tendon reflexes 2+ bilaterally and gait normal Motor Exam: strength 5/5 throughout and clonus absent Psych Activity / Motor Behavior: appropriate eye contact Speech: normal speech Labs Labs Labs: Blood Type A POSITIVE Antibody Screen NEGATIVE Hct 41.1 % (37-47) Hgb 12.8 g/dL (12.0-15.0) Obstetrics Ultrasound Syphilis Total Ab Non-reactive Rubella IgG Antibody Non-Reactive (Nonreactive) Hep Bs Antigen Non-Reactive (Nonreactive) Hepatitis C Antibody Non-Reactive (Nonreactive) HIV 1&2 Antibody Non-Reactive (Nonreactive) Glucose 1 Hr 50 gm 194 mg/dL (70-140) H Group B Strep DNA Negative (Negative) Rhogam given: No Miscellaneous Test Assessment & Plan (1) premature rupture of membranes (PPROM) with unknown onset of labor: COMMENT: 34.6 weeks +PRROM, afebrile IV antibiotics Celestone (2) Elevated BP without diagnosis of hypertension: COMMENT: 09/20 elevated x1, repeat normal. outpt labs obtained. PLAN: PEC labs ordered. (3) Dilation of renal pelvis of fetus: COMMENT: Saw pediatric urology:persistent right dilation- baby needs amoxil post delivery and see urology within 1 mo. See report. 09/29:growth 68%. OK to deliver in [place]. Rpt growth US w/MFM 3 wk (4) Preexisting diabetes complicating , antepartum: COMMENT: one hour 194-referral to dr smith starting nph 30 units for persistent elevated fasting levels. 05/05/23, increased to 18u (06/09), increased to 30u growth scans monthly and testing starting at 32 weeks PLAN: glucose management per protocol. (5) Obesity affecting : QUALIFIERS: Trimester: third trimester Obesity type affecting : unspecified obesity Qualified Code(s): O99.213 - Obesity complicating , third trimester COMMENT: 1 TM GCT and healthy weight gain encouraged (6) Supervision of high-risk : QUALIFIERS: Trimester: third trimester Qualified Code(s): O09.93 - Supervision of high risk , unspecified, third trimester COMMENT: [id number], MAHAMED 11/14/22 BOY:Tae. KAYA Archera, Bryson (7) : QUALIFIERS: Weeks of gestation: 34 weeks Qualified Code(s): Z3A.34 - 34 weeks gestation of COMMENT: plan NIPT & declined carrier testing PLAN: Plan updated on admission, poc and exam. IV antibiotics and celestone ordered by JV. co-management for , diabetes and PPROM.
[2023-10-09 13:09] LABS: Protein, Urine (Random) < 6.0 mg/dL (<11.9)
[2023-10-09] MEDS: miSOPROStol 25 MCG TABLET BUCCAL (14:52)
[2023-10-09 17:07] LABS: Bedside Glucose 96 mg/dL (74-106)
--- NOTE | 2023-10-09 18:48 | PN_ITS ---
Progress Note pt is comfortable sitting in bed. current tracing: FHT: 10 Moderate variability reactive no decelerations category I tracing [place]: q3 min Contractions cx : /-2 reviewed tracing abnormalities since last note: no changes A/P: gbs is neg, discontinue abx. start pitocin now.
[2023-10-09 20:57] LABS: Bedside Glucose 100 mg/dL (74-106)
[2023-10-09] MEDS: Pantoprazole Sodium 40 MG Tablet PO (21:25)
[2023-10-09] MEDS: Loratadine 10 MG Tablet PO (21:25)
[2023-10-09] MEDS: LACTATED RINGERS 500 ML 999 ML IV ×2 (22:24→23:26)
[2023-10-09] MEDS: fentaNYL-bupivacaine (epidural) 100 ML BAG EPIDURAL (23:29)
[2023-10-09] MEDS: ePHEDrine Sulfate 50 MG/ML Ampul 10 MG IV (23:49)
[2023-10-09] MEDS: Oxytocin 15 Units/NS 250ml 15 UNITS/250 ML IV.SOLN 2 UNITS IV (23:51)
[2023-10-10] VITALS (80 sets, daily range): BP systolic 79–139; BP diastolic 39–73; PULSE 78–120; RESP 12–18; TEMP 35.6–36.8; O2SAT 94–100
[2023-10-10] MEDS: ePHEDrine Sulfate 50 MG/ML Ampul 10 MG IV (00:04)
[2023-10-10] MEDS: LACTATED RINGERS 500 ML 999 ML IV ×2 (00:05→02:26)
[2023-10-10 00:49] LABS: Bedside Glucose 109 mg/dL (74-106)
[2023-10-10] MEDS: Lactated Ringers 1,000 ML 200 ML IV (01:32)
[2023-10-10] MEDS: Clindamycin 900 MG/50 ML BAG 75 MG IV (03:40)
[2023-10-10] MEDS: Gentamicin IV 250 MG in Dextrose 5%-Water (50mL Bag) 50 ML 100 MG IVPB (03:45)
--- NOTE | 2023-10-10 04:22 | EX.PCM.OBRPT ---
Maternal Data Information MAHAMED Calculator Estimated Delivery Date Method Current WG Current Estimate 11/14/23 LMP (Certain) 35w 0d Final MAHAMED: 11/14/23 Final MAHAMED Source: LMP Gestational age: 35 weeks 0 days Doctor Who Attended Delivery: Chante Mahajan Details Operative Information Date of Procedure: 10/10/23 Pre-Operative Diagnosis: intolerance to labor, 35 weeks pprom, desires permanent sterilization Post-Operative Diagnosis: intolerance to labor, 35 weeks pprom, desires permanent sterilization Classification: Stat Procedure Type: low transverse investigator internal affairs #1: Katie Mcgrath Type of Anesthesia: Epidural Estimated Blood Loss: 600cc Procedure Start Time: 03:48 Procedure Stop Time: 04:21 Time of Delivery: 03:51 Findings Description of Procedure: Prior to decision for section the patient was in a prolonged deceleration for over 5 minutes. 3 fluid boluses and 3 doses of ephedrine were given to help resolve hypotension and low baseline heart rate. The patient was put in hands knees was given oxygen and scalp stimulation. Initially there was a slight change in baseline with scalp stimulation however this was followed by minimal variability and variable decelerations. At this time the nurses called me and for assessment and I asked for the patient to be moved to the operating room for further assessment. Upon arrival I performed an additional scalp stimulation and this resulted in a deceleration down to the 80s followed by minimal variability. The cervical dilation was found to be at 4 cm with -2 station and the head not well engaged. The decision was made to proceed with primary section. After the risk benefits and alternatives were discussed with the patient the patient agreed with surgery and expressed desire for permanent sterilization. The patient was brought to the operating room where epidural anesthesia was found to be adequate. She was prepped and draped in the normal sterile fashion and was placed in a dorsal supine position with a leftward tilt. Pfannenstiel skin incision was made with a scalpel and carried through to the underlying layers. The fascia was nicked in the midline and extended laterally using Goldberg scissors. The anterior aspect of the fascia was grasped with Lamar clamps and the underlying rectus muscles dissected off using the Metzenbaum scissors. The inferior aspect the fascia was also grasped with Lamar clamps and the underlying rectus muscle dissected off with the Metzenbaum scissors. The rectus muscles were in the midline. Peritoneum was entered sharply. The uterus was identified and a bladder blade was inserted into the abdomen. Bladder flap was created off the uterus using Metzenbaum scissors. A transverse incision was made with a scalpel and extended laterally manually. The 's head was grasped with the help of my health assistant and fundal pressure the was delivered through the uterine incision without difficulty. The mouth and nares were bulb suctioned. After a 30 second delay the cord was clamped and cut. The was handed off to the awaiting water attendant for routine assessment. Placenta was delivered manually without difficulty. The uterus was exteriorized and cleared of all clots and debris. Incision was closed with an 0 Vicryl suture in a running locked fashion. Second layer of 1-0 monocryl suture was used in imbricating manner to create excellent closure and hemostasis. The right tube was grasped with a Berry clamp and the underlying mesosalpinx was cauterized and cut with the ligasure device removing the entire tube and fimbriated end. The same procedure was performed on the opposite side. Both fallopian tubes were passed off for pathology analysis. The uterus was returned to the abdomen. The gutters were cleared of all clots and debris. The peritoneum was closed in a pursestring pattern using a 3-0 Vicryl suture. This muscle was reapproximated with a 3-0 Vicryl. The fascia was closed with an a stratafix PDS suture. Subcutaneous tissue layer was closed using a plain gut suture. The skin was closed with a 4-0 Monocryl subcuticular stitch. The skin was also sealed with surgical glue. The patient tolerated the procedure well sponge lap and needle counts were correct at each tissue closure plane and the patient is now being brought to the recovery room in stable condition Presentation: Positive for Vertex Time of Membrane Ruptured: 0600 10/09/23 Amniotic Fluid Description: Clear Placental Delivery Description: Manual Removal Placenta Disposition: [facility] Cord Vessel Description: 3 Vessels Cord Entanglement: Around neck x 1, loose Nuchal Cord Compression: Without compression Cord Gases: ABG and VBG A Gender: Male (1 minute): 8 (5 minute): 9 Delayed Cord Clamping: No Complications Risks of Surgery Discussed w/Patient: Bleeding, Anesthesia Risks, Infection, Need for Future C-Sections, Permanency, Failure Rate of 1 to 2%, Injury to surrounding structure(s) including bowel and bladder and Availability of other non-permanent control options Multi Select Codes Urinary/Genital Urinary/Genital CPT Codes: 57403 C/S+TL
--- NOTE | 2023-10-10 04:32 | DCINST_ITS ---
Discharge Instructions Diet Discharge Diet: No restrictions Activity Discharge Activity: May Not Drive (for 2 weeks or while taking narcotic pain medications.), May Shower and May Take a Tub Bath (in 7 days.) May resume sexual activity in: 4-6 weeks Weight Bearing Status: Full weight bearing Lifting Restrictions: 20 pounds Dressing / Incision Call your doctor if your incision/area has: Continuous Slow Oozing, Sudden Increased Bleeding, Increased Pain/ Swelling, Increased Redness and Foul Smelling Discharge Call your doctor if you observe: Fever of 101 or Higher and Using more than 1 pad per hour Suture Line Care: Avoid Pulling/Pushing and Avoid Pinching/Bending Cleanse incision/area with: Soap & Water and Keep Dressing Clean & Dry Follow Up Care Please Follow Up With: Tejal Madrid DO When: Call [phone] to make an appointment for an incision check in 1-2 weeks. Test Results: Test results from this visit will be discussed in further detail at your follow- up appointment, if applicable. Discharge Plan Admission Admit Date/Time: 10/09/23 07:15 Attending Provider: Megan Vyas Primary Care Provider: Buddy Rubio Discharge Orders/Prescriptions Prescriptions: No Action omeprazole 40 mg capsule,delayed release(DR/EC) 40 mg PO DAILY loratadine [Claritin] 10 mg tablet 10 mg PO DAILY aspirin 81 mg tablet,delayed release (DR/EC) 81 mg PO DAILY vit [id number] 1 EACH tablet 1 tab PO DAILY (DME) blood-glucose meter Misc See Rx Instructions .MEDSUPPLY Qty: 1 0RF Rx Instructions: As directed- Test fasting and 2 hours after meals (DME) lancets Misc See Rx Instructions .MEDSUPPLY Qty: 200 6RF Rx Instructions: As directed- fasting & 2 HR post meals (DME) Blood Glucose Test Strip See Rx Instructions .Route Qty: 120 8RF Rx Instructions: As directed- fasting and 2 hr post meals insulin NPH isoph U-100 human 100 unit/mL (3 mL) insulin pen 40 unit subcut QPM Qty: 36 1RF Referrals / Follow Up: Buddy Rubio MD [Primary Care Provider] -
[2023-10-10] MEDS: Oxytocin 15 Units/NS 250ml 15 UNITS/250 ML IV.SOLN 83 UNITS IV (04:59)
[2023-10-10] MEDS: Ketorolac 30 MG/ML Syringe IV ×3 (05:57→18:01)
[2023-10-10] MEDS: Acetaminophen 500 MG Tablet 1000 MG PO ×3 (05:58→18:00)
[2023-10-10 06:04] LABS: Pathology Specimen OB SEE PATHOLOGY REPORT
[2023-10-10 06:37] LABS: Bedside Glucose 115 mg/dL (74-106)
--- NOTE | 2023-10-10 07:06 | NURSING ---
epidural catheter removed, blue tip intact
[2023-10-10] MEDS: Lactated Ringers 1,000 ML 100 ML IV (08:13)
[2023-10-10 11:16] LABS: Bedside Glucose 120 mg/dL (74-106)
[2023-10-10] MEDS: Senna/Docusate Sodium 1 Tablet PO (12:08)
--- NOTE | 2023-10-10 13:02 | NURSING ---
Per Dr Self, Pediatric Hospitalist, placenta not sent to [facility] lab.
[2023-10-10 13:59] LABS: Bedside Glucose 119 mg/dL (74-106)
[2023-10-10] MEDS: Enoxaparin 40 MG/0.4 ML Syringe SC (16:29)
--- OUTSIDE RECORDS SUMMARY | 2023-10-10 17:07 | XMS RPT_ITS | CCD ---
Author Name Unknown Address [address] [place] [address] Organization [facility] Care Team Providers Care Horse Riding Coach Or Instructor Name Role Phone MIRA BETTS Referring Unavailab [...] source) Cefaclor; Translations: [CEFACLOR] Drug Allergy 5 [facility] Repository (1 source) House dust mite; Translations: [DUST MITE EXTRACT] Propensity to adverse reactions to drug (disorder) 9 [facility] Repository (1 source) INSECT EXTRACT; Translations: [INSECT EXTRACT] Propensity to adverse reactions to drug (disorder) 6 [facility] Repository (1 source) MOLDS & SMUTS; Translations: [MOLDS & SMUTS] Propensity to adverse reactions to drug (disorder) 9 [facility] Repository Results Test Name Value Interpretation Reference [...] 06-26-2023 End: 06-26-2023 [facility]ulatory [facility] P[facility] Date Payer Category Payer Unknown [id number] 2.16. [id number] 1989 Unknown [id number] 2.16. [id number] 1989 Unknown [id number] 2.16. [id number] 1989 Unknown [id number] 2.16. [id number] 1989 Unknown [id number] 2.16. [id number] 1989 Unknown [id number] 2.16. [id number] Private Health Insurance [id number] Clinical Note 09-29-2023 Note Date & Type [...] answered. Joaquin Akbar MD September 29, 2023 [facility] Clinical Note 09-29-2023 Note Date & Type [...] 1. Continued obstetrical care with her primary social work faculty member is recommended. 2. Follow up in 3 weeks to evaluate biometric parameters and renals. These are planned with the [facility]. 3. surveillance as follows: as clinically indicated. 4. Pt completed consultation with Pediatric Urology. Plan is to place baby on amoxicilllin 10 mg/kg/day and obtain office ultrasound within 1 month after . Please call [facility] at [phone] to schedule. 5. Delivery is appropriate at your local institution with follow up as indicated. 6. Mode and timing of delivery are based on the usual obstetrical indications. 7. Pediatric provider to determine if additional evaluations are recommended prior to discharge. 8. Additional follow up as clinically indicated. Eosinophilic esophagitis 09/29/2023 -Managed by Dr. Ascencion Beasley, [facility] in [place], [place] -Diagnosed in [id number] after endoscopy and 2 colonoscopy procedure performed [...] ( 08/21/23) -A1C= 5.8 (08/21/23) -Managed with [facility], Dr. Marlon Holden -On NPH 16 [...] 1. Continued obstetrical care with her primary social work faculty member is recommended. 2. Follow up in 3 weeks to evaluate biometric parameters and renals. These are planned with the Treatment [facility]. 3. surveillance as follows: as clinically indicated. 4. Pt completed consultation with Pediatric Urology. Plan is to place baby on amoxicilllin 10 mg/kg/day and obtain office ultrasound within 1 month after . Please call [facility] at [phone] to schedule. 5. Delivery is appropriate at [...] spent on patient care today: [address] [facility] Summary Purpose Family History No Family History Records FoundNo Family History Records Found Advance Directives No Advanced Directives Records FoundNo Advanced Directives Records Found Additional Source Comments INFORMATION SOURCE (unrecogn ized section and content) DATE CREATED AUTHOR AUTHOR'S ORGANIZ ATION 10/04/2023 [facility] FOR RECORDS PERTAINING TO PATIENTS WHO ARE [...] BE BASED ON THE PRIMARY CLINICAL RECORDS. [employer] provides no warranty or guarantee of the accuracy or completeness of information in this document.
[2023-10-10] MEDS: 0.9% Saline Lock 10 ML Syringe IV (18:01)
[2023-10-10 19:36] LABS: Bedside Glucose 104 mg/dL (74-106)
[2023-10-10] MEDS: Pantoprazole Sodium 40 MG Tablet PO (22:06)
[2023-10-10] MEDS: Loratadine 10 MG Tablet PO (22:06)
[2023-10-10 22:33] LABS: Bedside Glucose 116 mg/dL (74-106)
[2023-10-11 00:10] VITALS: BP 126/56; PULSE 88; RESP 14; TEMP 36.2; O2SAT 97
[2023-10-11] MEDS: Ketorolac 30 MG/ML Syringe IV (00:12)
[2023-10-11] MEDS: Acetaminophen 500 MG Tablet 1000 MG PO ×4 (00:12→18:10)
[2023-10-11] MEDS: 0.9% Saline Lock 10 ML Syringe IV (00:12)
[2023-10-11 02:20] VITALS: PULSE 91; RESP 14; O2SAT 99
[2023-10-11 05:00] VITALS: BP 124/44; PULSE 89; RESP 14; TEMP 36.5; O2SAT 97
[2023-10-11 05:26] LABS: Hematocrit 29.7 % (37-47); Hemoglobin 9.3 g/dL (12.0-15.0); Mean Corp Hgb Conc 31.3 g/dL (32-36); Mean Corpuscular Hgb 25.8 pg (27.0-32.0); Mean Corpuscular Volume 82.3 fL (81-99); Mean Platelet Vol. 8.4 fl (6.2-12.0); Platelet Count 415 K/mm3 (150-450); RBC Distribution Width CV 14.6 % (11.6-14.6); RBC Distribution Width SD 42.8 fl (35.1-43.9); Red Blood Count 3.61 M/mm3 (4.2-5.4); White Blood Count 15.4 K/mm3 (4.4-11.0)
[2023-10-11 05:34] LABS: Bedside Glucose 110 mg/dL (74-106)
[2023-10-11] MEDS: Ibuprofen 600 MG Tablet PO ×3 (06:26→18:10)
[2023-10-11 07:12] VITALS: BP 115/74; PULSE 99; RESP 16; TEMP 36; O2SAT 97
--- NOTE | 2023-10-11 07:33 | PCM.PN.OB ---
Subjective Subjective Patient is laying in bed comfortably without complaints. She states that she slept on an off during the night. Lochia is mild and pain is minimal. Objective Data Objective Data Vital Signs: Vital Signs Temp Pulse Resp BP Pulse Ox O2 Del Method 96.8 F L 99 16 115/74 97 Room Air 10/11/23 07:12 10/11/23 07:12 10/11/23 07:12 10/11/23 07:12 10/11/23 07:12 10/11/23 07:12 Oxygen Delivery Method Room Air Weight: 220 lb 14.451 oz Body Mass Index (BMI) 40.4 Intake & Output: Intake and Output for Last 24 Hours 10/09/23 10/10/23 10/11/23 23:59 23:59 23:59 Intake Total 2987.50 / 2987.50 2239.31 / 2239.31 Output Total 2300 / 2300 3700 / 3700 Balance 687.50 / 687.50 -1460.69 / -1460.69 -1 / -1 Lab / Micro Data 10/11/23 05:10 10/09/23 08:15 Labs: Laboratory Results - last 24 hr 10/10/23 10:57: POC Glucose 120 H 10/10/23 13:29: POC Glucose 119 H 10/10/23 19:10: POC Glucose 104 10/10/23 22:08: POC Glucose 116 H 10/11/23 05:10: WBC 15.4 H, RBC 3.61 L, Hgb 9.3 L, Hct 29.7 L, MCV 82.3, MCH 25.8 L, MCHC 31.3 L, RDW Std Deviation 42.8, RDW Coeff of Madan 14.6, Plt Count 415, MPV 8.4, POC Glucose 110 H ROS Constitutional Constitutional: Reports systems reviewed and no addt'l complaints, except as documented Cardiovascular Cardiovascular: Denies chest pain, dizziness, dyspnea or irregular heart rhythm Respiratory/Chest Respiratory/Chest: Denies cough, pain on inspiration or shortness of breath at rest Gastrointestinal Gastrointestinal: Denies abdominal pain, nausea or vomiting Genitourinary Genitourinary: Denies burning urination Musculoskeletal Musculoskeletal: Denies muscle cramps, muscle spasms or muscle weakness Neurologic Neurologic: Denies confusion, dizziness, headache(s) or lack of coordination Psychiatric Psychiatric: Denies anxiety, behavioral changes or depression Physical Exam HEENT normocephalic Resp normal respiratory effort and normal air movement GI soft to palpation, non-tender and non-distended Rectal Exam: other Other Details: Incision is clean, dry, and intact no CVA tenderness Extremity normal to inspection General Extremity: edema bilateral (trace ) Assessment & Plan (1) Status post section routine follow-up: PLAN: s/p LTCS PPD # 1 1. routine post care 2. breast feeding- support given, baby in nicu for low glucose levels 3. rh positive 4. rubella immune
[2023-10-11] MEDS: Senna/Docusate Sodium 1 Tablet PO (07:38)
[2023-10-11] MEDS: Enoxaparin 40 MG/0.4 ML Syringe SC (09:53)
[2023-10-11 15:00] VITALS: BP 128/79; PULSE 94; RESP 18; TEMP 36.2
[2023-10-11 21:54] VITALS: BP 117/70; PULSE 89; RESP 18
[2023-10-11] MEDS: Loratadine 10 MG Tablet PO (21:56)
[2023-10-11] MEDS: Pantoprazole Sodium 40 MG Tablet PO (21:56)
[2023-10-12] MEDS: Acetaminophen 500 MG Tablet 1000 MG PO ×5 (00:29→23:53)
[2023-10-12] MEDS: Ibuprofen 600 MG Tablet PO ×5 (00:29→23:53)
[2023-10-12 03:11] VITALS: BP 123/75; PULSE 89; RESP 18; TEMP 36.2
--- NOTE | 2023-10-12 07:44 | PCM.PN.OB ---
Subjective Subjective Patient doing well without complaints. Tolerating PO. Ambulating and voiding without difficulty. Feeding well/Baby Luke in SCN but doing well. Denies chest pain, shortness of breath, calf pain/swelling, fevers, chills, lightheadedness. Objective Data Objective Data Vital Signs: Vital Signs Temp Pulse Resp BP Pulse Ox O2 Del Method 97.2 F L 89 18 123/75 H 97 Room Air 10/12/23 03:11 10/12/23 03:11 10/12/23 03:11 10/12/23 03:11 10/11/23 07:12 10/11/23 21:54 Oxygen Delivery Method Room Air Weight: 220 lb 14.451 oz Body Mass Index (BMI) 40.4 Intake & Output: Intake and Output for Last 24 Hours 10/10/23 10/11/23 10/12/23 23:59 23:59 23:59 Intake Total 2239.31 / 2239.31 Output Total 3700 / 3700 Balance -1460.69 / -1460.69 - / -1 Lab / Micro Data 10/11/23 05:10 10/09/23 08:15 Physical Exam Const alert and oriented x3 HEENT normocephalic Eyes PERRL Neck full ROM Resp normal respiratory effort GI soft to palpation GI Narrative: FF below U. Dressing dry and intact Palpation: tender other (appropriately) Assessment & Plan (1) Status post section routine follow-up: COMMENT: 10/10/23 PCS Luke JV (2) Preexisting diabetes complicating , antepartum: COMMENT: one hour 194-referral to dr smith starting nph 30 units for persistent elevated fasting levels. 05/05/23, increased to 18u (06/09), increased to 30u growth scans monthly and testing starting at 32 weeks PLAN: Plan s/p LTCS PPD # 2 1. routine post care 2. breast feeding- support given 3. rh positive 4. rubella immune 5. glucose stable
[2023-10-12 07:48] VITALS: BP 130/67; PULSE 96; RESP 16; TEMP 36.3
[2023-10-12] MEDS: Senna/Docusate Sodium 1 Tablet PO (09:54)
[2023-10-12] MEDS: Enoxaparin 40 MG/0.4 ML Syringe SC (09:55)
[2023-10-12 13:38] VITALS: BP 145/77; PULSE 92; RESP 20; TEMP 36.1
[2023-10-12 19:28] VITALS: BP 146/76; PULSE 92; RESP 16; TEMP 36.2; O2SAT 98
[2023-10-12] MEDS: Loratadine 10 MG Tablet PO (22:01)
[2023-10-12] MEDS: Pantoprazole Sodium 40 MG Tablet PO (22:01)
[2023-10-13 02:34] VITALS: BP 129/80; PULSE 79; RESP 16; TEMP 36.1; O2SAT 96
[2023-10-13] MEDS: Acetaminophen 500 MG Tablet 1000 MG PO ×2 (06:06→11:48)
[2023-10-13] MEDS: Ibuprofen 600 MG Tablet PO ×2 (06:06→11:48)
[2023-10-13 07:35] VITALS: BP 136/90; PULSE 86; RESP 16; TEMP 36.4; O2SAT 98
--- NOTE | 2023-10-13 07:52 | PCM.DC.SUM ---
Providers Date of Admission: 10/09/23 Primary Care Physician: Dr. Buddy Rubio MD Reason For Visit: PRIMARY C SECTION Diagnosis Discharge Diagnosis (1) Status post section routine follow-up: Status: Acute Code(s): Z39.2 - Encounter for routine follow-up; Z98.891 - History of uterine scar from previous surgery Plan: s/p LTCS PPD # 1 1. routine post care 2. breast feeding- support given, baby in nicu for low glucose levels 3. rh positive 4. rubella immune (2) Preexisting diabetes complicating , antepartum: Status: Acute Code(s): O24.319 - Unspecified pre-existing diabetes mellitus in , unspecified trimester Medications at Discharge Home Medications vits no.130-ferrous fum 27 mg iron-folic acid 800 mcg tablet 1 tab PO DAILY Check with primary doctor 03/28/20 omeprazole 40 mg capsule,delayed release 40 mg PO DAILY 03/18/21 blood sugar diagnostic (Blood Glucose Test strips) #120 ea 04/27/23 blood-glucose meter #1 ea 04/27/23 lancets #200 ea 04/27/23 loratadine 10 mg tablet (Claritin) 10 mg PO DAILY 05/19/23 ibuprofen 800 mg tablet 800 mg PO Q8H PRN pain #30 tabs 10/13/23 labetalol 100 mg tablet 100 mg PO BID #60 tabs 10/13/23 Hospital Course Operations None and section Summary of Care Provided Minutes Spent on Discharge: 30 Hospital Course: The patient was admitted for a repeat section on . There were no complications. On day #1 she was tolerating pain well and ambulating, on day #2 she was ready for discharge but was having some elevated bp's. on day 3 she was started on low dose labetalol then discharged to hotel status while baby was being treated in the nicu Physical Exam HEENT normocephalic Resp normal respiratory effort and normal air movement GI soft to palpation, non-tender and non-distended Rectal Exam: other Other Details: Incision is clean, dry, and intact no CVA tenderness Extremity normal to inspection General Extremity: edema bilateral (trace ) Weight / BMI Weight Weight: 220 lb 14.451 oz Body Mass Index (BMI) 40.4 ABG / Lab / Microbiology Data 10/11/23 05:10 10/09/23 08:15 Microbiology: Microbiology 10/09/23 Unknown Genital vaginal Group B Streptococcus Culture - Final Group B Beta Streptococcus is not isolated. D/C Instructions Discharge Diet: No restrictions May resume sexual activity in: 4-6 weeks Weight Bearing Status: Full weight bearing Call your doctor if your incision/area has: Continuous Slow Oozing, Sudden Increased Bleeding, Increased Pain/ Swelling, Increased Redness and Foul Smelling Discharge Call your doctor if you observe: Fever of 101 or Higher and Using more than 1 pad per hour Suture Line Care: Avoid Pulling/Pushing and Avoid Pinching/Bending Cleanse incision/area with: Soap & Water and Keep Dressing Clean & Dry Please Follow Up With: Tejal Madrid DO When: Call [phone] to make an appointment for an incision check in 1-2 weeks. Meaningful Use Info Meaningful Use Diagnoses (Choose all that apply): None applicable Discharge Plan Admission Admit Date/Time: 10/09/23 07:15 Attending Provider: Megan Vyas Primary Care Provider: Buddy Rubio Discharge Orders/Prescriptions Prescriptions: New ibuprofen 800 mg tablet 800 mg PO Q8H PRN (Reason: pain) Qty: 30 0RF labetalol 100 mg tablet 100 mg PO BID Qty: 60 0RF Continued omeprazole 40 mg capsule,delayed release(DR/EC) 40 mg PO DAILY vit no.330-[id number] 1 EACH tablet 1 tab PO DAILY (DME) blood-glucose meter Misc See Rx Instructions .MEDSUPPLY Qty: 1 0RF Rx Instructions: As directed- Test fasting and 2 hours after meals (DME) lancets Misc See Rx Instructions .MEDSUPPLY Qty: 200 6RF Rx Instructions: As directed- fasting & 2 HR post meals (DME) Blood Glucose Test Strip See Rx Instructions .Route Qty: 120 8RF Rx Instructions: As directed- fasting and 2 hr post meals Held loratadine [Claritin] 10 mg tablet 10 mg PO DAILY Hold Instructions: Resume on 11/13/23. hold for at least 1st month of breast feeding Discontinued aspirin 81 mg tablet,delayed release (DR/EC) 81 mg PO DAILY insulin NPH isoph U-100 human 100 unit/mL (3 mL) insulin pen 40 unit subcut QPM Qty: 36 1RF Referrals / Follow Up: Buddy Rubio MD [Primary Care Provider] - Disposition Discharge Orders: Discharge Patient (Routine); Ordered 10/14/23 Ordered By: Dr. Tejal Madrid
[2023-10-13] MEDS: Labetalol 100 MG Tablet PO (08:48)
[2023-10-13] MEDS: Enoxaparin 40 MG/0.4 ML Syringe SC (11:48)
[2023-10-13 14:59] VITALS: BP 132/80; PULSE 96; RESP 16; TEMP 36.3; O2SAT 96
[2023-10-13 17:28] VITALS: BP 134/85; PULSE 86; RESP 16; O2SAT 98
--- NOTE | 2023-10-17 15:23 | NURSING ---
10/17/23 1520: Follow up phone call performed, now that pt. and are both home from the hospital. Pt. states things are going well overall, and that they are happy to be home. Family saw yesterday and field marketing associate today, infant doing well and gaining weight. Pt. states they are still working on latch, but that she's able to pump at least 90mL each session. Encouragement and support given. Pt. denies any s+s during phone call.
== END 2023-10-13 17:20 | disposition home or self-care (01) | DRG 783 ==
LOC: WPOUT 07:19 → WP 10-10 04:18
PROVIDERS: Obstetrics & Gynecology; Admitting Provider Registered Nurse; PCP Family Medicine; Referring Provider Registered Nurse; Visit Provider Registered Nurse
DX: O42.913 Preterm premature rupture of membranes, unspecified as to length of time between rupture and onset of labor, third trimester (principal); O24.32 Unspecified pre-existing diabetes mellitus in childbirth; O99.42 Diseases of the circulatory system complicating childbirth; I95.9 Hypotension, unspecified; Z79.4 Long term (current) use of insulin; O99.214 Obesity complicating childbirth; O69.81X0 Labor and delivery complicated by cord around neck, without compression, not applicable or unspecified; Z30.2 Encounter for sterilization; O76 Abnormality in fetal heart rate and rhythm complicating labor and delivery; R03.0 Elevated blood-pressure reading, without diagnosis of hypertension; Z79.82 Long term (current) use of aspirin; Z79.899 Other long term (current) drug therapy; Z37.0 Single live birth; Z3A.35 35 weeks gestation of pregnancy
CPT/HCPCS: 59025; 59050; 82565; 82570; 82962; 84112; 84156; 84450; 84460; 84550; 85025; 85027; 86780; 86850; 86900; 86901; 87081; 87653; 88302; 99221; J7120; A4216; G0378; J0702; J2405

== ENCOUNTER → 2023-11-22 | Outpatient (CLI) | payer OTHER, SELFPAY ==
--- OUTSIDE RECORDS SUMMARY | 2023-11-22 19:43 | XMS RPT_ITS | CCD ---
Author Name Unknown Address [address] [place] [address] Organization [facility] Care Team Providers Care Principal Android Developer Name Role Phone MIRA BETTS Referring Unavailab le [facility]IMARY [facility], Primary Care Unavailable MIRA BETTS Attending Unavailab leoncio [facility], Primary Care Unavailable TAHMINA NIELSEN Attending Unavailable MIRA BETTS Referring Unavailab KHARI So Attending Unavailable NO PRIMARY CAREMD Primary Care Unavailable MIRA BETTS Referring Unavailab le [facility], Primary Care Unavailable BREE NICHOLS Attending Unavailable FERMIN SAHU Referring UnavailKHARI Brenenr Attending Unavailable BUDDY MAE Primary Care Unavailable MIRA BETTS Referring UnavailKHARI De Jesus Referring Unavailable JOAQUIN AKBAR Attending Unavailable BUDDY MAE Primary Care Unavailable Allergies Allergy Classification Reported Allergen(s) Allergy Type Date of Onset Reaction(s) Facility (1 source) Cefaclor; Translations: [CEFACLOR] Drug Allergy 5 [facility] Repository (1 source) House dust mite; Translations: [DUST MITE EXTRACT] Propensity to adverse reactions to drug (disorder) 9 [facility] Repository (1 source) INSECT EXTRACT; Translations: [INSECT EXTRACT] Propensity to adverse reactions to drug (disorder) 6 [facility] Repository (1 source) MOLDS & SMUTS; Translations: [MOLDS & SMUTS] Propensity to adverse reactions to drug (disorder) 9 [facility] Repository Results Test Name Value Interpretation [...] 06-26-2023 End: 06-26-2023 ambulatory [facility] Payers Date Payer Category Payer Unknown [id number] 2.16. [id number] 1989 Unknown [id number] 2.16. [id number] 1989 Unknown [id number] 2.16. [id number] 1989 Unknown [id number] 2.16. [id number] 1989 Unknown [id number] 2.16. [id number] 1989 Unknown [id number] 2.16. [id number] Private Health Insurance [id number] Clinical Note 09-29-2023 Note Date & Type [...] answered. Joaquin Akbar MD September 29, 2023 [facility] Clinical Note 09-29-2023 Note Date & [...] 1. Continued obstetrical care with her primary campus recruiter is recommended. 2. Follow up in 3 weeks to evaluate biometric parameters and renals. These are planned with the Treatment Center. 3. surveillance as follows: as clinically indicated. 4. Pt completed consultation with Pediatric Urology. Plan is to place baby on amoxicilllin 10 mg/kg/day and obtain office ultrasound within 1 month after . Please call [facility] at [phone] to schedule. 5. Delivery is appropriate at your local institution with follow up as indicated. 6. Mode and timing of delivery are based on the usual obstetrical indications. 7. Pediatric provider to determine if additional evaluations are recommended prior to discharge. 8. Additional follow up as clinically indicated. Eosinophilic esophagitis 09/29/2023 -Managed by Dr. Ascencion Beasley, [facility] in [place], [place] -Diagnosed in [phone] after endoscopy and 2 colonoscopy procedure performed [...] ( 08/21/23) -A1C= 5.8 (08/21/23) -Managed with [facility], Dr. Marlon Holden -On NPH 16 [...] 1. Continued obstetrical care with her primary campus recruiter is recommended. 2. Follow up in 3 weeks to evaluate biometric parameters and renals. These are planned with the Treatment [facility]. 3. surveillance as follows: as clinically indicated. 4. Pt completed consultation with Pediatric Urology. Plan is to place baby on amoxicilllin 10 mg/kg/day and obtain office ultrasound within 1 month after . Please call [facility] at [phone] to schedule. 5. Delivery is appropriate at [...] spent on patient care today: 35 minutes. [facility] Summary Purpose Family History No Family History Records FoundNo Family History Records Found Advance Directives No Advanced Directives Records FoundNo Advanced Directives Records Found Additional Source Comments INFORMATION SOURCE (unrecogn ized section and content) DATE CREATED AUTHOR AUTHOR'S ORGANIZ ATION 10/04/2023 [facility] FOR RECORDS PERTAINING TO PATIENTS WHO [...] BE BASED ON THE PRIMARY CLINICAL RECORDS. [employer] provides no warranty or guarantee of the accuracy or completeness of information in this document.
[2023-11-29 15:08] LABS: HPV APTIMA, High Risk Negative (Negative)
== END | disposition home or self-care (01) ==
LOC: LABSPEC 15:52
PROVIDERS: PCP Family Medicine; Referring Provider Obstetrics & Gynecology; Visit Provider Obstetrics & Gynecology
DX: Z12.4 Encounter for screening for malignant neoplasm of cervix (principal)
CPT/HCPCS: 87624; 88175; G0145

== ENCOUNTER → 2023-12-06 | Outpatient (CLI) | payer OTHER, SELFPAY ==
--- OUTSIDE RECORDS SUMMARY | 2023-12-06 12:02 | XMS RPT_ITS | CCD ---
Author Name Unknown Address [address] [place] [address] Organization [facility] Care Team Providers Care Operator Technician Name Role Phone MIRA BETTS Referring Unavailab [...] source) Cefaclor; Translations: [CEFACLOR] Drug Allergy 5 [facility] Repository (1 source) House dust mite; Translations: [DUST MITE EXTRACT] Propensity to adverse reactions to drug (disorder) 9 [facility] Repository (1 source) INSECT EXTRACT; Translations: [INSECT EXTRACT] Propensity to adverse reactions to drug (disorder) 6 [facility] Repository (1 source) MOLDS & SMUTS; Translations: [MOLDS & SMUTS] Propensity to adverse reactions to drug (disorder) 9 [facility] Repository Results Test Name Value Interpretation [...] 06-26-2023 End: 06-26-2023 ambulatory [facility] Payers Date Payer Category Payer Unknown [id number] 2.16. [id number] 1989 Unknown [id number] 2.16. [id number] 1989 Unknown [id number] 2.16. [id number] 1989 Unknown [id number] 2.16. [id number] 1989 Unknown [id number] 2.16. [id number] 1989 Unknown [id number] 2.16. [id number] Private Health Insurance [id number] Clinical Note 09-29-2023 Note Date & Type [...] (GDM) 1hr= 194 Heart murmur As an infant, resolved History of pre-eclampsia in prior , [...] answered. Joaquin Akbar MD September 29, 2023 [facility] Clinical Note 09-29-2023 Note Date & [...] 1. Continued obstetrical care with her primary stiff leg operator is recommended. 2. Follow up in 3 weeks to evaluate biometric parameters and renals. These are planned with the Treatment [facility]. 3. surveillance as follows: as clinically indicated. 4. Pt completed consultation with Pediatric Urology. Plan is to place baby on amoxicilllin 10 mg/kg/day and obtain office ultrasound within 1 month after . Please call [facility] at [phone] to schedule. 5. Delivery is appropriate at your local institution with follow up as indicated. 6. Mode and timing of delivery are based on the usual obstetrical indications. 7. Pediatric provider to determine if additional evaluations are recommended prior to discharge. 8. Additional follow up as clinically indicated. Eosinophilic esophagitis 09/29/2023 -Managed by Dr. Ascencion Beasley, [facility] in [place], [place] -Diagnosed in [id number] after endoscopy and 2 colonoscopy procedure performed [...] ( 08/21/23) -A1C= 5.8 (08/21/23) -Managed with [facility], Dr. Marlon Holden -On NPH 16 [...] 1. Continued obstetrical care with her primary stiff leg operator is recommended. 2. Follow up in 3 weeks to evaluate biometric parameters and renals. These are planned with the Treatment Center. 3. surveillance as follows: as clinically indicated. 4. Pt completed consultation with Pediatric Urology. Plan is to place baby on amoxicilllin 10 mg/kg/day and obtain office ultrasound within 1 month after . Please call [facility] at [phone] to schedule. 5. Delivery is appropriate at [...] spent on patient care today: 35 minutes. [facility] Summary Purpose Family History No Family History Records FoundNo Family History Records Found Advance Directives No Advanced Directives Records FoundNo Advanced Directives Records Found Additional Source Comments INFORMATION SOURCE (unrecogn ized section and content) DATE CREATED AUTHOR AUTHOR'S ORGANIZ ATION 10/04/2023 [facility] FOR RECORDS PERTAINING TO PATIENTS WHO [...] BE BASED ON THE PRIMARY CLINICAL RECORDS. [employer] provides no warranty or guarantee of the accuracy or completeness of information in this document.
[2023-12-06 15:53] LABS: Anion Gap 6 (5-15); BUN 16 mg/dL (7-18); BUN/Creat Ratio 20.9 RATIO (10-20); Calcium,Total 9.9 mg/dL (8.5-10.1); Chloride 104 mmol/L (98-107); Cholesterol 265 mg/dL (200); Creatinine, Serum 0.76 mg/dL (0.55-1.02); EST Glomerular Filtration Rate 92 mL/min (>60); Est Glom Filt Rate - Afr Amer 111 mL/min (>60); Glucose 79 mg/dL (74-106); High Density Lipoprotein 48 mg/dL; Sodium Level 136 mmol/L (136-145); Triglycerides 151 mg/dL; Very Low Density Lipoprotein 30 mg/dL (5-40)
== END | disposition home or self-care (01) ==
LOC: MFPLAB 11:35
PROVIDERS: PCP Family Medicine; Visit Provider Family Medicine
DX: Z00.00 Encounter for general adult medical examination without abnormal findings (principal)
CPT/HCPCS: 36415; 80048; 80061

== ENCOUNTER → 2024-02-28 | Outpatient (CLI) | payer OTHER, SELFPAY ==
--- NOTE | 2024-02-28 09:58 | US_ITS ---
STUDY: ULTRASOUND BREAST - LEFT REASON FOR EXAM: Female, 33 years old. History of left mastitis. Patient is currently breast-feeding. TECHNIQUE: Axial and longitudinal images of the LEFT breast were performed with a high resolution ultrasound transducer. # OF IMAGES: 65 COMPARISON: None. FINDINGS: LEFT Breast: The upper half of the left breast was examined with ultrasound. No inflammatory process is seen. No evidence of fluid. Mildly dilated retroareolar ducts. US/Breast Limited Unilateral IMPRESSION: No effusion or abscess is seen. Mild degree of retroareolar ductal dilatation. ASSESSMENT CATEGORY: BIRADS Category 2: Benign. A letter regarding these results will be sent to the patient by the facility within 30 days. Electronically Signed: Jeferson Freeman MD at 11:17 EDT ,
== END | disposition home or self-care (01) ==
PROVIDERS: PCP Family Medicine; Referring Provider Nurse Practitioner Family; Visit Provider Nurse Practitioner Family
DX: N61.0 Mastitis without abscess (principal)
CPT/HCPCS: 76642

== ENCOUNTER 2024-05-23 08:33 | Outpatient (RCR) | payer SELFPAY ==
[2024-05-23 12:46] LABS: Cholesterol 221 mg/dL (200); High Density Lipoprotein 51 mg/dL; Triglycerides 111 mg/dL; Very Low Density Lipoprotein 22 mg/dL (5-40)
== END 2024-06-01 23:59 ==
LOC: NS 08:33
PROVIDERS: PCP Family Medicine; Referring Provider Obstetrics & Gynecology; Visit Provider Obstetrics & Gynecology
DX: Z71.3 Dietary counseling and surveillance (principal); E66.9 Obesity, unspecified; Z68.37 Body mass index [BMI] 37.0-37.9, adult
CPT/HCPCS: 36415; 80061; 97802

== ENCOUNTER 2024-06-25 08:38 | Outpatient (RCR) | payer SELFPAY | END 2024-07-01 23:59 | LOC: NS 08:38 | PROVIDERS: PCP Family Medicine; Referring Provider Obstetrics & Gynecology; Visit Provider Obstetrics & Gynecology | DX: Z71.3 Dietary counseling and surveillance (principal); E66.9 Obesity, unspecified; Z68.37 Body mass index [BMI] 37.0-37.9, adult | CPT/HCPCS: 97803 ==

== ENCOUNTER 2024-08-20 12:56 | Outpatient (RCR) | payer SELFPAY | END 2024-08-31 23:59 | LOC: NS 12:56 | PROVIDERS: PCP Family Medicine; Referring Provider Obstetrics & Gynecology; Visit Provider Obstetrics & Gynecology | DX: Z71.3 Dietary counseling and surveillance (principal); E66.9 Obesity, unspecified; Z68.37 Body mass index [BMI] 37.0-37.9, adult | CPT/HCPCS: 97803 ==

== ENCOUNTER 2024-10-22 12:27 | Outpatient (RCR) | payer SELFPAY | END 2024-11-01 23:59 | LOC: NS 12:27 | PROVIDERS: PCP Family Medicine; Referring Provider Obstetrics & Gynecology; Visit Provider Obstetrics & Gynecology | DX: Z71.3 Dietary counseling and surveillance (principal); E66.9 Obesity, unspecified; Z68.37 Body mass index [BMI] 37.0-37.9, adult | CPT/HCPCS: 97803 ==

== ENCOUNTER → 2025-04-03 | Outpatient (CLI) | payer OTHER, SELFPAY ==
[2025-04-03 12:43] LABS: Creatinine, Urine (random) 123.00 mg/dL (28.00-217.00); Microalbumin,Random Urine 24.8 mg/L (NO RANGE EST.)
[2025-04-03 12:49] LABS: AST(SGOT) 26 U/L (<=31); Alanine Aminotransfer ALT/SGPT 43 U/L (<=34); Albumin, Serum 4.6 g/dL (3.5-5.0); Alkaline Phosphatase 71 U/L (35-104); Anion Gap 14 (5-15); BUN 11 mg/dL (4-19); BUN/Creat Ratio 17.7 RATIO (10-20); Calcium,Total 9.9 mg/dL (7.6-11.0); Carbon Dioxide 22.0 mmol/L (21.0-32.0); Chloride 102 mmol/L (98-108); Cholesterol 215 mg/dL (<=200); Globulin 3.7 g/dL (2.2-4.2); Glucose 106 mg/dL (70-99); Low Density Lipoprotein Calc. 140 mg/dL; Potassium 4.0 mmol/L (3.3-5.1); Triglycerides 176 mg/dL; Very Low Density Lipoprotein 35 mg/dL (5-40); cholesterol:hdl ratio screen 5.43
== END | disposition home or self-care (01) ==
LOC: MFPLAB 10:15
PROVIDERS: PCP Family Medicine; Referring Provider Family Medicine; Visit Provider Family Medicine
DX: I10 Essential (primary) hypertension (principal)
CPT/HCPCS: 36415; 80053; 80061; 82043; 82570

== ENCOUNTER 2025-04-09 14:25 | Outpatient (RCR) | payer OTHER, SELFPAY | END 2025-05-01 23:59 | LOC: NS 14:25 | PROVIDERS: PCP Family Medicine; Referring Provider Family Medicine; Visit Provider Family Medicine | DX: Z71.3 Dietary counseling and surveillance (principal); E66.01 Morbid (severe) obesity due to excess calories; Z68.41 Body mass index [BMI] 40.0-44.9, adult | CPT/HCPCS: 97803 ==

== ENCOUNTER 2025-06-04 11:29 | Outpatient (RCR) | payer OTHER, SELFPAY | END 2025-07-01 23:59 | LOC: NS 11:29 | PROVIDERS: PCP Family Medicine; Referring Provider Family Medicine; Visit Provider Family Medicine | DX: Z71.3 Dietary counseling and surveillance (principal); E66.01 Morbid (severe) obesity due to excess calories; Z68.41 Body mass index [BMI] 40.0-44.9, adult | CPT/HCPCS: 97803 ==

== ENCOUNTER 2025-07-24 11:37 | Outpatient (RCR) | payer OTHER, SELFPAY | END 2025-08-01 23:59 | LOC: NS 11:37 | PROVIDERS: PCP Family Medicine; Referring Provider Family Medicine; Visit Provider Family Medicine | DX: Z71.3 Dietary counseling and surveillance (principal); E66.01 Morbid (severe) obesity due to excess calories; Z68.41 Body mass index [BMI] 40.0-44.9, adult | CPT/HCPCS: 97803 ==

== ENCOUNTER 2025-08-25 11:08 | Outpatient (RCR) | payer OTHER, SELFPAY | END 2025-08-31 23:59 | LOC: NS 11:08 | PROVIDERS: PCP Family Medicine; Referring Provider Family Medicine; Visit Provider Family Medicine | DX: Z71.3 Dietary counseling and surveillance (principal); E66.01 Morbid (severe) obesity due to excess calories; Z68.38 Body mass index [BMI] 38.0-38.9, adult | CPT/HCPCS: 97803 ==